=== PATIENT | male | born 2000 | race Caucasian/White ===

== ENCOUNTER 2024-04-28 14:04 | Observation (INO) | payer MEDICAID, SELFPAY ==
[2024-04-28] VITALS (8 sets, daily range): BP systolic 115–144; BP diastolic 58–105; PULSE 90–106; RESP 18–26; TEMP 36.1–37; O2SAT 93–100; BMI 24.3; BMI 19.9
[2024-04-28 14:43] LABS: Absolute Lymphocyte Count 1.59 X10^3/uL (0.83-4.51); Absolute Neutrophil Count 3.8 X10^3/uL (2.0-7.7); Basophil# 0.04 X10^3/uL; Basophil% 0.7 % (0-1); Eosinophil# 0.18 X10^3/uL; Eosinophils% 2.9 % (0-5); Hemoglobin 9.9 g/dL (13.0-16.5); Lymphocyte # 1.59 X10^3/ul (0.83-4.51); Lymphocyte % 25.9 % (19-41); Mean Corp Hgb Conc 29.1 g/dL (32-36); Mean Corpuscular Volume 68.7 fL (80-94); Mean Platelet Vol. 9.8 fl (6.2-12.0); Monocyte# 0.52 X10^3/uL; Monocyte% 8.5 % (0-10); NRBC Flagged by Analyzer 0 % (0-5); Neutrophil % 61.7 % (47-70); Platelet Count 492 K/mm3 (150-450); RBC Distribution Width CV 16.4 % (11.6-14.6); RBC Distribution Width SD 39.8 fl (35.1-43.9); Red Blood Count 4.95 M/mm3 (4.6-6.2); White Blood Count 6.2 K/mm3 (4.4-11.0)
[2024-04-28] MEDS: 0.9% Normal Saline (1000mL) 1,000 ML 999 ML IV ×3 (14:45→20:03)
--- NOTE | 2024-04-28 14:47 | EDS_ITS ---
HPI <BENJAMIN Loomis - Last Filed: 04/28/24 21:01> History of Present Illness Chief Complaint: Hyperglycemia Narrative Narrative: Patient presenting today with concerns for hyperglycemia. He reports a history of type 1 diabetes mellitus, he recently got back to the area yesterday from [place] after spending time living down there. He took a 36-hour bus ride to get back. He recently went into DKA at the end of March. He does not currently have a glucometer but has been giving himself Humalog daily. He reports that he has had 100 units of Humalog over the past 2 days. He reports that he feels thirsty and has been urinating frequently. He has had intermittent nausea but denies any vomiting. He reports that he has had chronic abdominal cramping intermittently, he is not currently having any abdominal pain. He also reports a history of a kidney transplant 10 years ago. When asked why he had a transplant he reports, I would prefer not to talk about it. [facility] <BENJAMIN Loomis - Last Filed: 04/28/24 21:01> [facility] Medical History Autism Type 1 diabetes mellitus Home Medications ?Medication ?Instructions ?Recorded ?Last Taken ?Type insulin glargine 100 unit/mL 25 unit subcut QPM DM 04/28/24 Unknown History subcutaneous solution (Lantus U-100 Insulin) insulin lispro 100 unit/mL 7 unit subcut ACHS dm 04/28/24 Unknown History subcutaneous pen (Humalog KwikPen (U-100) Insulin) lurasidone 40 mg tablet 40 mg PO DAILY dm 04/28/24 Unknown History mycophenolate sodium 360 mg 720 mg PO BID see order 04/28/24 Unknown History tablet,delayed release (Myfortic) tacrolimus 1 mg capsule, 2 mg PO Q12H sleep 04/28/24 Unknown History immediate-release trazodone 100 mg tablet 200 mg PO QHS sleep 04/28/24 Unknown History Allergy/AdvReac Type Severity Reaction Status Date / Time adhesive tape (tape) Allergy Rash Verified 04/28/24 14:06 ibuprofen Allergy PT UNABLE Verified 04/28/24 14:06 TO RESPOND-NEEDS F/U nitrofurantoin Allergy Rash Verified 04/28/24 14:06 Social History Smoking Status: Former smoker ROS <BENJAMIN Loomis - Last Filed: 04/28/24 21:01> ROS ED Constitutional Constitutional ED: Denies chills or fever(s) Cardiovascular Cardiovascular: Denies chest pain Respiratory/Chest Respiratory/Chest: Denies cough or dyspnea Gastrointestinal Gastrointestinal: Reports nausea; Denies abdominal pain or vomiting Genitourinary Genitourinary ED: Denies dysuria, hematuria or urinary urgency Musculoskeletal Musculoskeletal: Denies arthralgias or myalgias Integumentary Denies rash Neurologic Neurologic: Denies weakness EXAM <BENJAMIN Loomis - Last Filed: 04/28/24 21:01> Physical Exam Const Vital Signs: 04/28/24 14:04 04/28/24 14:07 04/28/24 17:10 Temperature 98.6 F 97.8 F Temperature Source Temporal Oral Pulse Rate 93 Respiratory Rate 18 Respiratory Effort Normal Respiratory Pattern Normal Blood Pressure 124/87 H 127/80 H Blood Pressure Mean 99 95 Pulse Ox 98 99 Oxygen Delivery Method Room Air Room Air 04/28/24 18:21 Temperature 97.1 F L Temperature Source Pulse Rate 106 H Respiratory Rate 26 H Respiratory Effort Respiratory Pattern Blood Pressure 144/95 H Blood Pressure Mean 111 Pulse Ox 100 Oxygen Delivery Method Positive well nourished, well developed and no apparent distress General Appearance ED: well developed HEENT Reports normocephalic, head/scalp atraumatic and dry mucous membranes Mouth ED: Yes dry mucous membranes Mouth: dry mucous membranes Eyes PERRL and EOMs intact bilaterally Neck full ROM and supple Chest Wall inspection of chest normal Resp normal respiratory effort and clear to auscultation bilaterally Cardio regular rate and regular rhythm GI soft to palpation, non-tender, non-distended and no masses Back/Spine normal ROM and normal to inspection Extremity normal to inspection and full ROM Neuro oriented x3, CN's II-XII intact bilaterally, moves all extremities, no focal motor deficits and no sensory deficits noted Sensorium / Orientation: awake and alert Psych mental status grossly normal and thought process normal Skin no rashes or lesions noted and no wounds <Dr. Ben Torres MD - Last Filed: 04/28/24 18:08> Physical Exam Const Vital Signs: 04/28/24 14:04 04/28/24 14:07 04/28/24 17:10 Temperature 98.6 F 97.8 F Temperature Source Temporal Oral Pulse Rate 93 Respiratory Rate 18 Respiratory Effort Normal Respiratory Pattern Normal Blood Pressure 124/87 H 127/80 H Blood Pressure Mean 99 95 Pulse Ox 98 99 Oxygen Delivery Method Room Air Room Air 04/28/24 18:21 Temperature 97.1 F L Temperature Source Pulse Rate 106 H Respiratory Rate 26 H Respiratory Effort Respiratory Pattern Blood Pressure 144/95 H Blood Pressure Mean 111 Pulse Ox 100 Oxygen Delivery Method MDM <BENJAMIN Loomis - Last Filed: 04/28/24 21:01> [facility] Narrative Medical decision making narrative: Patient presenting with concerns for hyperglycemia. Recent DKA at the end of March while in [place]. He does not have a glucometer to check his sugar but has been administering Humalog daily. He reports that he is out of his long-acting insulin and his insurance will no longer cover it. Clinically he does appear dry, he will be given IV fluids and labs will be obtained to rule out DKA. Patient is in DKA, he will be started on an insulin drip, he will be given additional IV fluids. I will speak with the hospitalist for admission. VBG pending. Initially patient was refusing treatment but did not want to leave A, he then was agreeable to receiving treatment was started on a insulin drip. Patient admitted to the hospital in stable condition. Lab Data Attestation: I reviewed the patient's lab results. Lab results narrative: H&H 9.9 and 34, platelet count 492, sodium 121, potassium 5.3, chloride 82, anion gap 27, BUN 35, creatinine 1.78, glucose 1020, moderate acetone level Labs: Laboratory Results - last 24 hr 04/28/24 04/28/24 14:25 18:25 WBC 6.2 RBC 4.95 Hgb 9.9 L Hct 34.0 L MCV 68.7 L MCH 20.0 L MCHC 29.1 L RDW Std Deviation 39.8 RDW Coeff of Aminah 16.4 H Plt Count 492 H MPV 9.8 Immature Gran % (Auto) 0.300 Neut % (Auto) 61.7 Lymph % (Auto) 25.9 [place] % (Auto) 8.5 Eos % (Auto) 2.9 Baso % (Auto) 0.7 Absolute Neuts (auto) 3.8 Absolute Lymphs (auto) 1.59 Nucleated RBC % 0 Sodium 121 L Potassium 5.3 H Chloride 82 L Carbon Dioxide 12.0 L Anion Gap 27 H BUN 35 H Creatinine 1.78 H Estim Creat Clear Calc 67.21 Est GFR (MDRD) Af Amer 62 Est GFR (MDRD) Non-Af 51 L BUN/Creatinine Ratio 19.7 Glucose 1020 H* Calcium 9.4 Acetone Level MODERATE H POC Glucose > 500 H* ABG Data ABG results: ABG 04/28/24 16:40 Specimen Type AURA Sample Site Not entered VBG pH 7.27 L VBG pO2 49 H VBG HCO3 8 L VBG Total CO2 9 L VBG O2 Sat (Calc) 80 H VBG Base Excess -19 L POC Mix VBG pCO2 Pt Tmp 18.1 L* O2 Delivery Device Not entered Crit Call To/Read Back Yes Blood Gas Notified Whom bb Blood Gas Notified Time 16:42:16 <Dr. Ben Torres MD - Last Filed: 04/28/24 18:08> [facility] Lab Data Labs: Laboratory Results - last 24 hr 04/28/24 04/28/24 14:25 18:25 WBC 6.2 RBC 4.95 Hgb 9.9 L Hct 34.0 L MCV 68.7 L MCH 20.0 L MCHC 29.1 L RDW Std Deviation 39.8 RDW Coeff of Aminah 16.4 H Plt Count 492 H MPV 9.8 Immature Gran % (Auto) 0.300 Neut % (Auto) 61.7 Lymph % (Auto) 25.9 [place] % (Auto) 8.5 Eos % (Auto) 2.9 Baso % (Auto) 0.7 Absolute Neuts (auto) 3.8 Absolute Lymphs (auto) 1.59 Nucleated RBC % 0 Sodium 121 L Potassium 5.3 H Chloride 82 L Carbon Dioxide 12.0 L Anion Gap 27 H BUN 35 H Creatinine 1.78 H Estim Creat Clear Calc 67.21 Est GFR (MDRD) Af Amer 62 Est GFR (MDRD) Non-Af 51 L BUN/Creatinine Ratio 19.7 Glucose 1020 H* Calcium 9.4 Acetone Level MODERATE H POC Glucose > 500 H* ABG Data ABG results: ABG 04/28/24 16:40 Specimen Type AURA Sample Site Not entered VBG pH 7.27 L VBG pO2 49 H VBG HCO3 8 L VBG Total CO2 9 L VBG O2 Sat (Calc) 80 H VBG Base Excess -19 L POC Mix VBG pCO2 Pt Tmp 18.1 L* O2 Delivery Device Not entered Crit Call To/Read Back Yes Blood Gas Notified Whom bb Blood Gas Notified Time 16:42:16 Management Discussion w/another healthcare provider: Hospitalist Treatment and Re-Evaluation Comments:: I have personally performed a face to face assessment of the patient and have reviewed the HARINI Note. I performed a substantive portion of the visit including all aspects of the following. My tong findings include: History is polydipsia and polyuria, feels like his blood sugar is high but does not have a glucometer. Nausea but no vomiting. Feeling a little short of breath. No chest pain. No fevers or chills or other illness. Exam is well-appearing in no distress. Texting with his friend. Abdomen soft nontender. No respiratory distress. Lungs clear. Medical Decison Making Labs consistent with severe hyperglycemia and DKA. Patient is refusing to get into a gown and refusing insulin drip. He is not refusing admission and wants to be admitted. He states there is a study that allows him to get out of DKA with subcutaneous insulin in the ICU and he wants to do that. Discussed with hospitalist. Other additions or changes: Patient is being very difficult with staff. He will not let them check his blood pressure, he threatened the hospitalist to gordon him and take his license. He states that there are psychiatric records from a hospital in [place] that he can obtain. He is not letting medical staff care for him in the appropriate manner per DKA policy of this hospital. He also states that he is complaining that the security operations engineer is not wearing a body cam, and that he is going to start recording people. He was alerted that there is a policy disallowing patient's recording healthcare providers at this hospital and that indeed he will not be allowed to do so. I advised him that he is not to be dictating the medical care; he was demanding that we give him food, however he is being admitted to the ICU for DKA with very high blood sugar. I do believe anu duong has the capacity to make these decisions, I advised him that he would do well to allow us to care for him in which case we would be happy to admit him or if he is going to be refusing all care and blood pressure, vital signs, other testing which is part of that, then he should be leaving AGAINST MEDICAL ADVICE although he is refusing to sign. Advised the patient that it is his choice. Discharge Plan Dx/Rx/DC Orders Clinical Impression: DKA (diabetic ketoacidosis) Disposition Disposition: Acute Care Hospital [facility] Discharge Date/Time: 04/28/24 19:42
--- NOTE | 2024-04-28 14:48 | ED.RN ---
pt refuses bp checksaying that cant use rt arm now because of iv pt up to br. animated behavior obs and some acting out on care and treatment. stated, im probably in dka pt refusing insulin gtt as discussed with BENJAMIN
[2024-04-28 15:40] LABS: Anion Gap 27 (5-15); BUN 35 mg/dL (7-18); BUN/Creat Ratio 19.7 RATIO (10-20); Calcium,Total 9.4 mg/dL (8.5-10.1); Chloride 82 mmol/L (98-107); Creatinine, Serum 1.78 mg/dL (0.70-1.30); EST Glomerular Filtration Rate 51 mL/min (>60); Est Glom Filt Rate - Afr Amer 62 mL/min (>60); Estimated Creatinine Clearance 67.21 ml/min; Glucose 1020 mg/dL (74-106); Potassium 5.3 mmol/L (3.5-5.1); Sodium Level 121 mmol/L (136-145)
--- NOTE | 2024-04-28 15:57 | ED.RN ---
Pt roro and belligerent to this RN, refuses to remove clothes and don hospital gown, refuses to allow this RN to obtain vitals signs, refuses to be put on case monitor.
--- NOTE | 2024-04-28 16:10 | ED.RN ---
This RN overheard pt rudely and adamantly refusing insulin gtt after being informed by ED MD he required admission to ICU. Pt states that's not the right treatment, I've been traumatized by and insulin drip before. Pt further tells ED MD subcutaneous insulin is the treatment for DKA, states that's what he's used before in [place].
--- NOTE | 2024-04-28 16:13 | ED.RN ---
pt not cooperating with staff. pt yelling loudly at someone on the phone, door closed and can still be heard at back nurses station. pt refusing to get off the phone to speak to this nurse. told this nurse you can wait till i'm off the phone. i'm not going to talk to you because i'm on the phone and you are rushing me, you can get out.
[2024-04-28 16:44] LABS: Blood Gas Specimen Type VEN; O2 Delivery Device Not entered; SITE Not entered; Time Given 16:42:16; VBG BASE EXCESS -19 mmol/L (-1.0-3.5); VBG Bicarbonate 8 mmol/L (22-26); VBG PO2 49 mmHg (25-40); VBG SO2 80 % (50-70); VBG TCO2 9 mmol/L (23-33); VBG pCO2 18.1 mmHg (41-51); VBG pH 7.27 (7.32-7.42)
--- NOTE | 2024-04-28 17:40 | ED.RN ---
per dr. pitts pt is threatening to gordon him and take his license.
--- NOTE | 2024-04-28 17:47 | PCM.HP.STD ---
HPI - General General Date of Admission: 04/28/24 Date of Service: 04/28/24 Chief Complaint: Diabetic ketoacidosis HPI Narrative CROW AVALOS, is a 24 M with past medical history of type 1 diabetes since the age of 12 years, reported high functioning autism, prior kidney transplant who presents presents with concerns regarding hyperglycemia, acidosis and features of diabetic ketoacidosis. The patient has been providing multiple and conflicting history as. Initially in the ED patient was not willing to accept therapy including IV insulin infusion as he says he has highs functioning autism and prior bad experience with insulin. He would not allow vitals to be checked as his asthma anxiety, as the blood pressure cuff gives him anxiety. He will agree with IV insulin infusion if he gets to eat when he is on the infusion. He has been verbally abusive to the doctor and the staff, repeating phrases like I will see you and close the hospital now, and verbally using expletives towards the staff. At this time he is more agreeable to get admitted and pursue therapy, he refused to go AMA but states will try to cooperate given his limitations with anxiety. COUNTS INCLUDE 234 BEDS AT THE [facility] Medical History Autism Type 1 diabetes mellitus Home Medications ?Medication ?Instructions ?Recorded ?Last Taken ?Type Unobtainable 04/28/24 Unknown History Allergy/AdvReac Type Severity Reaction Status Date / Time adhesive tape (tape) Allergy Rash Verified 04/28/24 14:06 ibuprofen Allergy PT UNABLE Verified 04/28/24 14:06 TO RESPOND-NEEDS F/U nitrofurantoin Allergy Rash Verified 04/28/24 14:06 Social History Smoking Status: Never smoker ROS Review of Systems ROS Unobtainable: other Details: Uncooperative Vital Signs Vital Signs Vital Signs: 04/28/24 14:04 04/28/24 14:07 04/28/24 17:10 Temperature 98.6 F 97.8 F Temperature Source Temporal Oral Pulse Rate 93 Respiratory Rate 18 Respiratory Effort Normal Respiratory Pattern Normal Blood Pressure 124/87 H 127/80 H Blood Pressure Mean 99 95 Pulse Ox 98 99 Oxygen Delivery Method Room Air Room Air Weight Weight: 170 lb Body Mass Index (BMI) 24.3 Physical Exam Const alert and oriented x3 Constitutional Narrative: Dry mucosa HEENT normocephalic Eyes PERRL Neck no lymphadenopathy Resp normal respiratory effort, no retractions and clear to auscultation bilaterally Cardio regular rhythm Neuro oriented x3 Sensorium / Orientation: awake and alert Results Medical Records Data Attestation: I reviewed the patient's medical records Lab / Micro Data Attestation: I reviewed the patient's lab results. 04/28/24 14:25 04/28/24 14:25 Labs: Laboratory Results - last 24 hr 04/28/24 14:25: WBC 6.2, RBC 4.95, Hgb 9.9 L, Hct 34.0 L, MCV 68.7 L, MCH 20.0 L, MCHC 29.1 L, RDW Std Deviation 39.8, RDW Coeff of Aminah 16.4 H, Plt Count 492 H, MPV 9.8, Immature Gran % (Auto) 0.300, Neut % (Auto) 61.7, Lymph % (Auto) 25.9, [place] % (Auto) 8.5, Eos % (Auto) 2.9, Baso % (Auto) 0.7, Absolute Neuts (auto) 3.8, Absolute Lymphs (auto) 1.59, Nucleated RBC % 0, Sodium 121 L, Potassium 5.3 H, Chloride 82 L, Carbon Dioxide 12.0 L, Anion Gap 27 H, BUN 35 H, Creatinine 1.78 H, Estim Creat Clear Calc 67.21, Est GFR (MDRD) Af Amer 62, Est GFR (MDRD) Non-Af 51 L, BUN/Creatinine Ratio 19.7, Glucose 1020 H*, Calcium 9.4, Acetone Level MODERATE H ABG Data ABG results: ABG 04/28/24 16:40 Specimen Type AURA Sample Site Not entered VBG pH 7.27 L VBG pO2 49 H VBG HCO3 8 L VBG Total CO2 9 L VBG O2 Sat (Calc) 80 H VBG Base Excess -19 L POC Mix VBG pCO2 Pt Tmp 18.1 L* O2 Delivery Device Not entered Crit Call To/Read Back Yes Blood Gas Notified Whom bb Blood Gas Notified Time 16:42:16 Attestation: I personally reviewed and interpreted this ABG as follows: Assessment & Plan Assessment/Plan (1) DKA (diabetic ketoacidosis): PLAN: Plan 24-year-old male with history of type 1 diabetes, reported prior kidney transplant presents to the ED with concerns regarding polyuria polydipsia, and has laboratory findings of diabetic ketoacidosis with a pH of 7.27. The patient is very uncooperative, states he has high functioning autism and severe anxiety disorder. He was initially refusing vital checkup in the ED and insulin infusion. #DKA: -Admit to the ICU -Start IV lispro insulin infusion per ICU protocol -0.9 normal saline at 15 mL/KG per hour initially l -Correctional insulin with D5 dextrose -Close monitoring of potassium, normokalemic at this time -N.p.o.. -IV or sublingual Zofran as tolerated by the patient Potassium chloride 20 to 30 mEq/L IV fluid to maintain potassium between 4-5 #Hyponatremia: Related to hyperglycemia, suspect pseudohyponatremia -Continue monitor sodium for now with fluid therapy #Severe behavioral issues, high functioning autism: -Difficult patient in regards to treat his underlying conditions -Will reach out to family as needed # Nicotine use disorder: Nicotine patch as needed #Alcohol use disorder: In abstinence at present #DVT prophylaxis: Low risk, suspect he will refuse heparin, SCD as tolerated Charges/Coding Visit Charges Inpatient E&M: 34180 Init Hosp L2
--- NOTE | 2024-04-28 17:53 | ED.RN ---
pt attempted to have vital signs taken d/t admission. pt 89/ and when went to recheck pt refusing. pt cussing at staff and stated, he will not have the bp retaken and if go icu as informed and that will be getting every 15 with strict monitoring pt stated, no i wont nohemy ill fucking rip that bp cuff rt off sing in to see and pt given ama form then d/t not letting staff or hospitalist do what needed to be done. security called as pt raising voice to when attempts to explain plan of care. pt stated, im not leaving ama and you cant refuse care! pt on phone then to call sister to come get me pt argues with every staff member that comes in room. viscose cellar charge hand aware. sister loyd called and aware and stated, do what you have to to keep him there. tell him i said and thats the rule!
--- NOTE | 2024-04-28 17:54 | ED.RN ---
Due to blood pressure being 89/14 on the monitor, I walked into room to request to put blood pressure cuff back on to get an updated pressure. Patient refused and said the cuff hasn't been on my arm and the cuff doesn't need to be on my arm to record a blood pressure. Patient then yells at myself and HOSPICE ADMITTING CLERK Miguel to shut the hell up. Miguel and myself then walk out of the room and go get application security specialist Nikita.
--- NOTE | 2024-04-28 17:57 | ED.RN ---
Addendum entered by Richa Lopes 04/28/24 18:13: Pt sister hung up before nurse of pt could answer phone and called back. this guidance secretary answered the phone, sister states I am Stanley Herbert's sister and POA, someone needs to do their job and not yell at my brother! He has PTSD and autism. I place sister on brief hold in which she hung up before the pt nurse could answer the phone call. Sister calls back immedietly, again this guidance secretary answers the phone and sister says I have called multiple times and no nurse has came to the phone regarding my brother! This guidance secretary stated that the pt nurse may be in another pt room, therefore she may take a few minutes to answer the phone. Pt sister again placed on hold. Original Note: Pt sister called ed, this guidance secretary answered the phone. She instantly started yelling about how her brother is in the er and being treated unfairly and wants to know why that is. I apologized and said I would try to get the nurse to the phone to further explain the situation.
--- NOTE | 2024-04-28 18:06 | ED.RN ---
dr aavlos in and sat with pt to let pt know that we are trying to help and that in order to do so we have to do the necessary nursing care. pt stated, well you can pull up my psych record that shows i have ptsd and autism and you people cannout be yelling at me! i already said i would do the drip, ask that one drCristopher when pt told that could not dictate what would and would not do yelled, and he doesnt even have a body cam (pointing to security incident response specialist) so i should gordon! dr. avalos left room. pt refusing gown at this time.
--- NOTE | 2024-04-28 18:08 | ED.RN ---
Walked into room with Bhakti Koehler, and security flex utility officer Niktia. Zakia asks patient are you willing to let us help you medically? Patient never answered question after being asked multiple times. He then states that [place] [employer] will be here in about 10 minutes or so to use their body cameras since I am not allowed to record. Patient states he has autism and requests 2 people to step out of the room. Myself and Nikita step out of the room.
--- NOTE | 2024-04-28 18:15 | ED.RN ---
sister loyd lane called who claims to be pts poa sister upset and asking why pt is being treated so bad when has autism and ptsd sister said that is calling zach digital producer because we should know about how to care for him. sister asked to come in and sit with him then so can see for herself that pt not being threatened and that is being belligerant on care. stated that will be here in 30 min.
--- NOTE | 2024-04-28 18:21 | ED.RN ---
pt currently agreeing to vitals and admission.
--- NOTE | 2024-04-28 18:21 | ED.RN ---
sister called back and stated i forgot i have this boot thing on and had foot surgery so cant come up. but restrain him and do everything you need to do charge accounts audit clerk and medic in and pt allowing vs at this time. pt still on phone with sister
--- NOTE | 2024-04-28 18:23 | ED.RN ---
pt agreeable to vitals at this time but demands they be removed.
--- NOTE | 2024-04-28 18:29 | ED.RN ---
I along with , security Marvin went into patient's room in the hopes of having the patient accept treatment or understand the risks of leaving the hospital AMA. the patient got upset and would not let the doctor talk or explain anything. Everyone left the room. Bhakti S, myself, Leny Newton, all entered the room to ask the patient if he would allow us to get vitals and place him on the monitor, patient explained he has autism and he would only like 2 people in the room. and Leny left the room, leaving myself and Bhakti in the room. Patient continued to not allow anyone to talk and continued to get more upset. Eula Murillo entered the room and Bhakti left the room. We allowed the patient to talk and explain why he was upset. patient then drank his kristy diamond, after vomited a large amount. patient accepted help from myself and Eula to change out emesis bag and get patient into a gown. patient explains he doesn't want stickers on his body. patient accepted the blood pressure cuff and pulse ox, glucose reading. patient became calmer and cooperative.
[2024-04-28] MEDS: Insulin Lispro 100 UNIT in 0.9% Normal Saline (100mL Bag) 99 ML 7.7 UNIT CONT INF (18:34)
[2024-04-28 18:44] LABS: Bedside Glucose > 500 mg/dL (74-106)
[2024-04-28] MEDS: Ondansetron ODT 4 MG Tablet PO (18:50)
[2024-04-28 20:15] LABS: Anion Gap 28 (5-15); BUN 33 mg/dL (7-18); Chloride 93 mmol/L (98-107); Creatinine, Serum 1.83 mg/dL (0.70-1.30); EST Glomerular Filtration Rate 49 mL/min (>60); Est Glom Filt Rate - Afr Amer 60 mL/min (>60); Estimated Creatinine Clearance 56.51 ml/min; Glucose 733 mg/dL (74-106); Potassium 4.5 mmol/L (3.5-5.1); Sodium Level 128 mmol/L (136-145)
[2024-04-29 08:36] LABS: Absolute Lymphocyte Count 3.01 X10^3/uL (0.83-4.51); Absolute Neutrophil Count 14.8 X10^3/uL (2.0-7.7); Basophil# 0.06 X10^3/uL; Basophil% 0.3 % (0-1); Hematocrit 32.4 % (40-54); Hemoglobin 9.3 g/dL (13.0-16.5); Lymphocyte # 3.01 X10^3/ul (0.83-4.51); Lymphocyte % 15.8 % (19-41); Mean Corp Hgb Conc 28.7 g/dL (32-36); Mean Corpuscular Hgb 19.8 pg (27.0-32.0); Mean Corpuscular Volume 69.1 fL (80-94); Monocyte# 1.08 X10^3/uL; Monocyte% 5.7 % (0-10); NRBC Flagged by Analyzer 0 % (0-5); Neutrophil # 14.81 X10^3/uL (2.7-7.7); Neutrophil % 77.6 % (47-70); Platelet Count 593 K/mm3 (150-450); RBC Distribution Width CV 16.5 % (11.6-14.6); Red Blood Count 4.69 M/mm3 (4.6-6.2); White Blood Count 19.1 K/mm3 (4.4-11.0)
[2024-04-29 08:51] LABS: International Normalized Ratio 1.3; Phosphorus 3.7 mg/dL (2.5-4.9); Prothrombin Time (Protime)PT. 15.7 SECONDS (11.7-14.9)
[2024-04-29 09:17] LABS: ALB/GLOB Ratio 1.2 RATIO (0.9-2.4); AST(SGOT) 12 U/L (15-37); Alanine Aminotransfer ALT/SGPT 21 U/L (16-61); Albumin, Serum 3.7 g/dL (3.2-5.0); Alkaline Phosphatase 100 U/L (45-117); Anion Gap 22 (5-15); BUN 22 mg/dL (7-18); BUN/Creat Ratio 12.9 RATIO (10-20); Bilirubin, Direct 0.09 mg/dL (0.00-0.30); Calcium,Total 8.6 mg/dL (8.5-10.1); Chloride 111 mmol/L (98-107); Creatinine, Serum 1.71 mg/dL (0.70-1.30); EST Glomerular Filtration Rate 53 mL/min (>60); Est Glom Filt Rate - Afr Amer 65 mL/min (>60); Estimated Creatinine Clearance 60.48 ml/min; Globulin 3.2 g/dL (2.2-4.2); Glucose 262 mg/dL (74-106); Magnesium 2.2 mg/dL (1.6-2.6); Potassium 4.5 mmol/L (3.5-5.1); Protein, Total 6.9 g/dL (6.4-8.2); Sodium Level 139 mmol/L (136-145); Thyroid Stim Hormone (TSH) 1.69 uIU/mL (0.358-3.74)
== END 2024-04-28 19:45 | disposition left against medical advice (07) | DRG 420 ==
LOC: ED 16:23 → ICU 08-13 09:32
PROVIDERS: Physician Assistant; Admitting Provider Internal Medicine; Emergency Provider Emergency Medicine; Visit Provider Internal Medicine
DX: E10.10 Type 1 diabetes mellitus with ketoacidosis without coma (principal); Z79.4 Long term (current) use of insulin; E87.1 Hypo-osmolality and hyponatremia; F41.9 Anxiety disorder, unspecified; Z94.0 Kidney transplant status; Z87.891 Personal history of nicotine dependence; F84.0 Autistic disorder; Z79.899 Other long term (current) drug therapy
CPT/HCPCS: 80048; 80053; 80076; 82009; 82803; 82962; 83735; 84100; 84443; 85025; 85610; 96361; 96365; 96366; 99221; 99284; J7030; A4216; G0378; J2405

== ENCOUNTER 2024-04-29 01:34 | Inpatient (IN) | payer MEDICAID, SELFPAY ==
[2024-04-29] VITALS (17 sets, daily range): BP systolic 90–139; BP diastolic 59–103; PULSE 81–125; RESP 16–30; TEMP -17.7–36.8; O2SAT 96–100; BMI 20.2
--- NOTE | 2024-04-29 01:35 | ED.RN ---
This RN and additional ED nurse in room with patient to triage after squad arrived in room with patient. Patient refusing to put a gown on and to let us get a complete set of vitals for triage. Informed patient of need for gown for proper assessment and treatment. Patient continued to refuse. EMS back in room with patient as patient was cooperative for them and they were able to assist patient into a gown. Pt allowed his RN to place blood pressure cuff on arm for BP. Pt stated he wasn't wear telemetry, this RN educated patient of importance of proper monitoring in his condition. Eventually allowed this RN to place telemetry leads. Patient then refused oral temp, education again provided and patient yelled at this RN stating 'then we're not doing it!.' This RN updated MD and gas charger.
--- NOTE | 2024-04-29 01:48 | EKG12_ITS ---
Test Reason : DKA Blood Pressure : / mmHG Vent. Rate : 113 BPM Atrial Rate : 113 BPM P-R Int : 150 ms QRS Dur : 080 ms QT Int : 340 ms P-R-T Axes : 058 051 062 degrees QTc Int : 466 ms Sinus tachycardia Otherwise normal ECG Confirmed by Nacho Larsen ([id number]), website/blog editor RAJNI VELEZ ([id number]) on 04/29/2024 11:31:36 AM Referred By: Confirmed By:Nacho Larsen
--- NOTE | 2024-04-29 01:48 | EDS_ITS ---
HPI History of Present Illness Chief Complaint: Hyperglycemia Detail of Chief Complaint: Hyperglycemia Informant: patient and EMS Narrative Narrative: Patient presents to the emergency department via EMS from home. Patient apparently left the hospital 2 hours ago AGAINST MEDICAL ADVICE and was admitted to the ICU for DKA. Patient tells me just moved up here from [place] 3 days ago. He tells me he has been compliant with his medications. Complains of vomiting. Patient denies fevers. He states he left AMA because of PTSD. Patient states that people were yelling at him. [facility] Medical History (Updated 04/29/24 @ 02:[address] Flako Perez DO) Autism Type 1 diabetes mellitus Home Medications ?Medication ?Instructions ?Recorded ?Last Taken ?Type insulin glargine 100 unit/mL 25 unit subcut QPM DM 04/28/24 Unknown History subcutaneous solution (Lantus U-100 Insulin) insulin lispro 100 unit/mL 7 unit subcut ACHS dm 04/28/24 Unknown History subcutaneous pen (Humalog KwikPen (U-100) Insulin) lurasidone 40 mg tablet 40 mg PO DAILY dm 04/28/24 Unknown History mycophenolate sodium 360 mg 720 mg PO BID see order 04/28/24 Unknown History tablet,delayed release (Myfortic) tacrolimus 1 mg capsule, 2 mg PO Q12H sleep 04/28/24 Unknown History immediate-release trazodone 100 mg tablet 200 mg PO QHS sleep 04/28/24 Unknown History Allergy/AdvReac Type Severity Reaction Status Date / Time adhesive tape (tape) Allergy Rash Verified 04/29/24 01:40 ibuprofen Allergy PT UNABLE Verified 04/29/24 01:40 TO RESPOND-NEEDS F/U nitrofurantoin Allergy Rash Verified 04/29/24 01:40 Social History Smoking Status: Current every day smoker tobacco type: cigarettes ROS ROS ED Review of Systems ROS Unobtainable: other Constitutional Constitutional ED: Reports lethargy; Denies chills, fever(s), sweats or weight loss Eyes Eyes: Denies blurry vision, change in vision or diplopia ENT ENT ED: Denies rhinorrhea or sore throat Cardiovascular Cardiovascular: Denies chest pain, orthopnea or racing heartbeat Respiratory/Chest Respiratory/Chest: Reports dyspnea; Denies cough, dyspnea on exertion, orthopnea or sputum Gastrointestinal Gastrointestinal: Reports nausea and vomiting; Denies abdominal pain or diarrhea Genitourinary Genitourinary ED: Denies dysuria, hematuria or urinary frequency Musculoskeletal Musculoskeletal: Denies arthralgias, back pain, myalgias or neck pain Integumentary Denies abscess, Abrasions or rash Neurologic Neurologic: Denies headache(s) or weakness Psychiatric Psychiatric: Denies anxiety, depression or suicidal thoughts Endocrine Endocrinology: Denies polydipsia, polyphagia or polyuria Hematologic/Lymphatic Hematologic/Lymphatic: Denies easy bleeding, easy bruising or lymphadenopathy Allergic/Immunologic Allergic/Immunologic ED: Denies mouth swelling, tongue swelling or urticaria EXAM Physical Exam Const Vital Signs: 04/29/24 01:35 Temperature 0 F L Temperature Source Oral Pulse Rate 123 H Respiratory Rate 28 H Blood Pressure 139/84 H Blood Pressure Mean 102 Pulse Ox 100 Oxygen Delivery Method Room Air Positive well nourished and well developed General Appearance ED: well developed and NAD HEENT Reports TM's clear and dry mucous membranes normocephalic and atraumatic; Negative for trauma or tenderness Tympanic Membrane ED: Yes TM's clear Mouth ED: Yes dry mucous membranes Mouth: dry mucous membranes Eyes PERRL and EOMs intact bilaterally General Eye ED: Negative for pale conjunctiva or scleral icterus Neck no lymphadenopathy, supple and no JVD General: Negative for tenderness Chest Wall inspection of chest normal and palpation of chest normal Chest: Negative for tenderness Resp No normal respiratory effort and clear to auscultation bilaterally Resp Narrative: Patient with tachypnea Effort and Inspection: Negative for respiratory distress or pain with movement Auscultation: Negative for rhonchi, wheezes or diminished lung sounds Cardio regular rhythm, S1 normal heart sound, S2 normal heart sound and no murmurs Rate: tachycardic Peripheral Pulses: pulses 2+ throughout GI normal to inspection, nondistended, normoactive bowel sounds, soft to palpation, non-tender, non-distended and no masses Back/Spine no CVA tenderness and no thoracic nor lumbar tenderness Extremity normal to inspection General Extremety ED: Negative for edema General Extremity: Negative for edema Neuro oriented x3, CN's II-XII intact bilaterally, no sensory deficits noted and gait normal Sensorium / Orientation: awake, alert, oriented to person, oriented to place and oriented to time Motor Exam: strength 5/5 throughout and strength abnormal Psych mental status grossly normal Skin no rashes or lesions noted and no wounds MDM MDM MDM Narrative Medical decision making narrative: Patient presents to the emergency department in A after signing out AGAINST MEDICAL ADVICE. He states that he has PTSD. Patient is quite challenging from standpoint of cooperation. He did allow us to attempt IV start. At times quite rude to staff. Nursing staff was able to place an IV in his right antecubital using ultrasound as he is a difficult IV stick. I ordered a liter normal saline fluid bolus as well as insulin drip. Will obtain labs. Patient with leukocytosis white count 20.7 and hemoglobin 9.8. Platelet count 701. Chemistries show sodium of 129 with potassium 6.3 and CO2 of 6.0. Glucose was 8 32. BUN 31 creatinine 2.0. Patient had large acetone serum. We will not treat the hyperkalemia as I feel this will correct with correction of his acidosis. He has a leukocytosis which I suspect is likely reactive as he has been retching and vomiting. Patient again agreed to be admitted and understands consequences of going without treatment including disability and . Patient does appear to have capacity. Lab Data Attestation: I reviewed the patient's lab results. Labs: Laboratory Results - last 24 hr 04/29/24 04/29/24 02:06 02:21 WBC 20.7 H RBC 5.02 Hgb 9.8 L Hct 36.2 L MCV 72.1 L MCH 19.5 L MCHC 27.1 L D RDW Std Deviation 41.7 RDW Coeff of Aminah 16.6 H Plt Count 701 H MPV 9.5 Immature Gran % (Auto) 0.600 Neut % (Auto) 79.5 H Lymph % (Auto) 11.7 L Jack % (Auto) 7.7 Eos % (Auto) 0.1 Baso % (Auto) 0.4 Absolute Neuts (auto) 16.4 H Absolute Lymphs (auto) 2.41 Nucleated RBC % 0 Sodium 129 L Potassium 6.3 H* Chloride 92 L Carbon Dioxide 6.0 L* Anion Gap 31 H BUN 31 H Creatinine 2.00 H Estim Creat Clear Calc 52.36 Est GFR (MDRD) Af Amer 54 L Est GFR (MDRD) Non-Af 45 L BUN/Creatinine Ratio 15.5 Glucose 832 H* Calcium 9.2 Acetone Level LARGE H POC Glucose > 500 H* EKG Initial EKG: Attestation: I personally reviewed and interpreted this EKG as follows: Comments: Sinus tachycardia with rate of 113 bpm Critical Care Time Critical care time (excluding procedures): 30-74 minutes, Including time spent:, Discussing w/Patient &/or Family/Welt Edge Rounder, Discussing w/Consultants, Arranging Admission or Transfer, Performing Direct Patient Care at Bedside and - (30 minutes) Discharge Plan Dx/Rx/DC Orders Clinical Impression: DKA (diabetic ketoacidosis), Hyperglycemia, Leukocytosis, Acute hyperkalemia Disposition Disposition: [facility] Capacity Capacity Assessment Tool Patient lacks Decision Making Capacity: unable to understand, reason and deliberate health related choices: No Risk to self and or others?: Yes Risk of leaving the patient care unit and or hospital?: Yes
--- NOTE | 2024-04-29 01:54 | ED.RN ---
This nurse to room to start IV. Pt states you will put it where the fuck I want you to or I will rip it out. Pt refusing to get into a gown or take oral temperature. Informed pt that in order to receive proper care, he needed to allow staff to perform assessment and obtain IV. Security to department, Dr. Perez to room. Dr. Perez able to calm pt and allow this nurse to start IV. After Dr. Perez leaves room, while drawing blood pt looks at nurse and asks did you fuck it up again, this nurse reported to pt IV was working properly. Pt remains rude to staff while doctor is out of room.
[2024-04-29] MEDS: 0.9% Normal Saline (1000mL) 1,000 ML 999 ML IV ×5 (02:09→11:46)
[2024-04-29] MEDS: Insulin Lispro 100 UNIT in 0.9% Normal Saline (100mL Bag) 99 ML 6.4 UNIT CONT INF (02:12)
[2024-04-29 02:16] LABS: Absolute Lymphocyte Count 2.41 X10^3/uL (0.83-4.51); Absolute Neutrophil Count 16.4 X10^3/uL (2.0-7.7); Basophil# 0.08 X10^3/uL; Basophil% 0.4 % (0-1); Eosinophil# 0.03 X10^3/uL; Eosinophils% 0.1 % (0-5); Hematocrit 36.2 % (40-54); Hemoglobin 9.8 g/dL (13.0-16.5); Lymphocyte # 2.41 X10^3/ul (0.83-4.51); Lymphocyte % 11.7 % (19-41); Mean Corp Hgb Conc 27.1 g/dL (32-36); Mean Corpuscular Hgb 19.5 pg (27.0-32.0); Mean Corpuscular Volume 72.1 fL (80-94); Mean Platelet Vol. 9.5 fl (6.2-12.0); Monocyte% 7.7 % (0-10); NRBC Flagged by Analyzer 0 % (0-5); Neutrophil # 16.43 X10^3/uL (2.7-7.7); Neutrophil % 79.5 % (47-70); POSITIVE DIFFERENTIAL YES; Platelet Count 701 K/mm3 (150-450); RBC Distribution Width CV 16.6 % (11.6-14.6); RBC Distribution Width SD 41.7 fl (35.1-43.9); Red Blood Count 5.02 M/mm3 (4.6-6.2); White Blood Count 20.7 K/mm3 (4.4-11.0)
[2024-04-29 02:18] LABS: Differential Indicated SCAN CRITERIA MET
[2024-04-29] MEDS: Ondansetron ODT 4 MG Tablet PO (02:25)
--- NOTE | 2024-04-29 02:31 | ED.RN ---
PT REFUSING BLOOD PRESSURE BEING ON AND DIRECTOR OF RESTAURANT.PT VERBALLY ABUSIVE TOWARD STAFF.
[2024-04-29 02:38] LABS: Anion Gap 31 (5-15); BUN 31 mg/dL (7-18); BUN/Creat Ratio 15.5 RATIO (10-20); Calcium,Total 9.2 mg/dL (8.5-10.1); Chloride 92 mmol/L (98-107); EST Glomerular Filtration Rate 45 mL/min (>60); Est Glom Filt Rate - Afr Amer 54 mL/min (>60); Estimated Creatinine Clearance 52.36 ml/min; Glucose 832 mg/dL (74-106); Potassium 6.3 mmol/L (3.5-5.1); Sodium Level 129 mmol/L (136-145)
[2024-04-29 02:39] LABS: Bedside Glucose > 500 mg/dL (74-106)
--- NOTE | 2024-04-29 02:43 | PCM.HP.STD ---
[facility] - General General Date of Admission: 04/29/24 Date of Service: 04/29/24 Chief Complaint: Left AMA with DKA - but then came back. HPI Narrative CROW HERBERT, is a 24 M who presents with a past medical history of tobacco abuse, history of EtOH abuse (claiming to be abstinent at present with EMERITA pending), DM-1; uncontrolled with hyperglycemia since age 12 with his last bout of DKA in March 2024, history of kidney transplant (2013); on mycophenolate and tacrolimus, PTSD: on Lurasidone and Trazodone and self reported history of high-functioning autism; with patient just having moved back here from [place] 2-3 days ago with his sister still living in this area and recent admission here earlier today for severe DKA with a pH of 7.27 and a blood glucose of 1,020 mg/dL with moderate ketones and anion gap of 27 complicated by a ALBA and extremely severe medical non-compliance with maliciously self destructive and repulsive personality who chose to leave AMA (likely so he could use drugs) has now returned to the hospital to be admitted. Mr. Herbert has been very rude to several staff members that have been professional and trying to help him in spite of him being consistently uncooperative and ungrateful for help. Nevertheless, EMS records state he was lying on the concrete outside of his apartment complaining of anxiety, headache and generalized weakness because his blood sugar was too high - but he then refused treatment from EMT with patient wanting nothing done and seeming very agitated. He does not use a glucometer - but he claims he has been giving himself Humalog insulin daily with persistent hyperglycemia, polyuria and polydipsia. He also admits to intermittent nausea and vomiting with bilious emesis. When he was asked during his ER evaluation on his previous admission here to expound upon why he has a kidney transplant he responded with, I prefer not to talk about it. There is no report of fever, diarrhea or constipation but he does admit to chills, lethargy and blurry vision with a severe tension-type headache. He also denies suicidal or homicidal ideation. In the ER on this occasion he was noted to have Leukocytosis of 20.7K with critical hyperglycemia of 832 mg/dL and an anion gap of 31 with large acetone consistent with persistent DKA complicated by Severe Hyperkalemia of 6.3 mmol/L present on admission and ALBA; evidenced by BUN of 31 mg/dL with a creatinine of 2 mg/dL compounded by severe medical noncompliance with uncontrolled PTSD; triggered by feeling pressured and he was then admitted to the ICU for ongoing care for a stay that is expected to extend beyond 2 midnights. [facility] Medical History Autism Type 1 diabetes mellitus Home Medications ?Medication ?Instructions ?Recorded ?Last Taken ?Type insulin glargine 100 unit/mL 25 unit subcut QPM DM 04/28/24 Unknown History subcutaneous solution (Lantus U-100 Insulin) insulin lispro 100 unit/mL 7 unit subcut ACHS dm 04/28/24 Unknown History subcutaneous pen (Humalog KwikPen (U-100) Insulin) lurasidone 40 mg tablet 40 mg PO DAILY dm 04/28/24 Unknown History mycophenolate sodium 360 mg 720 mg PO BID see order 04/28/24 Unknown History tablet,delayed release (Myfortic) tacrolimus 1 mg capsule, 2 mg PO Q12H sleep 04/28/24 Unknown History immediate-release trazodone 100 mg tablet 200 mg PO QHS sleep 04/28/24 Unknown History Allergy/AdvReac Type Severity Reaction Status Date / Time adhesive tape (tape) Allergy Rash Verified 04/29/24 01:40 ibuprofen Allergy PT UNABLE Verified 04/29/24 01:40 TO RESPOND-NEEDS F/U nitrofurantoin Allergy Rash Verified 04/29/24 01:40 Social History Smoking Status: Current every day smoker tobacco type: cigarettes ROS ROS Narrative Review of systems: General: Patient admits to lethargy but denies fever or chills. HENT: Patient admits to tension-type headache but he denies stuffy nose, denies sore throat EYES: Patient admits to blurriness of vision but denies discharge from eyes. Resp: Denies cough, denies shortness of breath Cardiac: Denies chest pain, heart racing or palpitations. GI: Patient admits to nausea with bilious emesis but denies abdominal pain or diarrhea. : Patient admits to excessive urination consistent with polyuria. Extremity: Denies swelling Musculoskeletal: Feels somewhat generally weak and unwell but denies arthralgias or myalgias. Neuro: Patient admits to tension type headache but he denies paresthesias or focal neurologic weakness. Heme: Denies any bleeding or bruising Skin: Denies rashes Psychiatric: Patient has been persistently uncooperative and unpleasant but he denies suicidal or homicidal ideation. Endocrine: Patient admits to polyuria and polydipsia but he denies polyphagia. The rest of the 14 point ROS was negative except for positives in HPI. Vital Signs Vital Signs Vital Signs: 04/29/24 01:35 Temperature 0 F L Temperature Source Oral Pulse Rate 123 H Respiratory Rate 28 H Blood Pressure 139/84 H Blood Pressure Mean 102 Pulse Ox 100 Oxygen Delivery Method Room Air Weight Weight: 140 lb 14.006 oz Body Mass Index (BMI) 20.2 Physical Exam Const alert, oriented x3, no apparent distress and average body habitus General Appearance: uncooperative HEENT normocephalic, head/scalp atraumatic and hearing grossly normal bilaterally HEENT Narrative: Mucous membranes dry. Eyes PERRL and EOMs intact bilaterally Neck no lymphadenopathy and supple Resp normal respiratory effort, no retractions, no use of accessory muscles and clear to auscultation bilaterally Resp Narrative: Tachypnea at ~28 breaths/min noted on admission. Cardio regular rate and regular rhythm Cardio Narrative: Patient noted to have sinus tachycardia at ~120 bpm. GI normal to inspection, nondistended, normoactive bowel sounds, soft to palpation and non-distended GI Narrative: Patient has mild generalized tenderness to palpation. Extremity normal to inspection, full ROM and no clubbing, cyanosis or edema Skin Skin Narrative: Patient has no evidence of jaundice or rash. Neuro oriented x3, CN's II-XII intact bilaterally, moves all extremities and no focal motor deficits Sensorium / Orientation: awake, alert, oriented to person, oriented to place and oriented to time Speech: speech normal Psych Psych Narrative: Patient is persistently uncooperative and irrational showing very poor medical decision making and even poorer insight into his complex and potentially fatal medical condition. Mood & Affect: depressed and anxious Results Medical Records Data Attestation: I reviewed the patient's medical records Lab / Micro Data Attestation: I reviewed the patient's lab results. 04/29/24 02:06 04/29/24 04:02 Labs: Laboratory Results - last 24 hr 04/29/24 02:06: WBC 20.7 H, RBC 5.02, Hgb 9.8 L, Hct 36.2 L, MCV 72.1 L, MCH 19.5 L, MCHC 27.1 L D, RDW Std Deviation 41.7, RDW Coeff of Aminah 16.6 H, Plt Count 701 H, MPV 9.5, Immature Gran % (Auto) 0.600, Neut % (Auto) 79.5 H, Lymph % (Auto) 11.7 L, [place] % (Auto) 7.7, Eos % (Auto) 0.1, Baso % (Auto) 0.4, Absolute Neuts (auto) 16.4 H, Absolute Lymphs (auto) 2.41, Nucleated RBC % 0, Sodium 129 L, Potassium 6.3 H*, Chloride 92 L, Carbon Dioxide 6.0 L*, Anion Gap 31 H, BUN 31 H, Creatinine 2.00 H, Estim Creat Clear Calc 52.36, Est GFR (MDRD) Af Amer 54 L, Est GFR (MDRD) Non-Af 45 L, BUN/Creatinine Ratio 15.5, Glucose 832 H*, Calcium 9.2, Acetone Level LARGE H 04/29/24 02:21: POC Glucose > 500 H* Assessment & Plan Assessment/Plan (1) DKA (diabetic ketoacidosis): QUALIFIERS: Diabetes mellitus complication detail: without coma Diabetes mellitus type: type 1 Qualified Code(s): E10.10 - Type 1 diabetes mellitus with ketoacidosis without coma (2) Acute hyperkalemia: (3) ALBA (acute kidney injury): (4) PTSD (post-traumatic stress disorder): (5) Autism: (6) Type 1 diabetes mellitus: QUALIFIERS: Diabetes mellitus complication status: without complication Qualified Code(s): E10.9 - Type 1 diabetes mellitus without complications PLAN: Plan 1. Severe persistent DKA with critical hyperglycemia of 832 mg/dL and an anion gap of 31 with large serum acetone and leukocytosis of 20.7 K present on admission - Admit to ICU for treatment under the DKA protocol. Keep n.p.o. and vigorously volume resuscitate. Check ABG if patient is not willing to cooperate to precisely assess severity and establish baseline. Leukocytosis likely due to acute stress response but will check UA and chest x-ray to be sure there is no underlying infection. PICC was also ordered with poor venous access and patient very sensitive to painful stimuli. Clinical dietitian will be consulted to help this patient to obtain a glucometer and to help educate him on the importance of compliance with his insulin and blood sugar checks. 2. Severe Hyperkalemia of 6.3 mmol/L present on admission due to #1 - Start IV insulin and recheck BMP's every 4 hours as per DKA protocol. 3. ALBA; evidenced by BUN of 31 mg/dL with a creatinine of 2 mg/dL complicating #1 & #2 - We we will give copious IV fluids and recheck BMP to ensure improvement. 4. Severe medical noncompliance with uncontrolled PTSD and self-reported high functioning autism compounding #1 - #3 - This individual has relatively poor insight into his complex and potentially fatal medical condition. UDS negative and EMERITA levels are pending at this time as patient was initially reluctant to give urine. Restart lurasidone and trazodone as previous plus give as needed IV Ativan for breakthrough symptoms. 5. History of tobacco abuse adding to the pathology of #1 - #4 - Tobacco cessation will be strongly encouraged with nicotine patch offered to control cravings. 6. History of kidney transplant (2013); on mycophenolate and tacrolimus - Continue mycophenolate and tacrolimus as previous to prevent rejection. This adds to the complexity of his case and may hamper recovery. 7. Recent admission here earlier today for severe DKA with a pH of 7.27 and a blood glucose of 1,020 mg/dL with moderate ketones and anion gap of 27 complicated by a ALBA and severe medical non-compliance with persistently uncooperative and irrational behavior who chose to leave AMA - Noted. 8. History of alcohol abuse - Patient claims to be abstinent at this time with EMERITA pending. He claims he has not used for ~60 days. 9. History of opiate abuse - Patient denies current use and he does not want to be treated with any opiates so he does not relapse. 10. DM-1; uncontrolled with hyperglycemia since age 12 with his last bout of DKA in March 2024 - Noted likely due to the devolving and unorthodox treatment regimen of not checking his blood glucose and taking Humalog randomly. 11. DVT/GI prophylaxis - Lovenox 30 mg subcu daily. Protonix 40 mg IV daily. Total time: Approximately 75 minutes. Charges/Coding Visit Charges Inpatient E&M: 35168 Init Hosp L3
[2024-04-29 02:51] LABS: Bacteria 0 SEEN /hpf (None Seen); Color, Urine Yellow (Yellow); Glucose, Dipstick 1000 mg/dl (Normal); Leukocyte Esterase-Dipstick Negative /ul (Negative); Mucous, Urine 0 SEEN /hpf (<or=2+); Nitrite-Dipstick Negative (Negative); Occult Blood-Urine Negative /ul (Negative); Protein-Dipstick 30 mg/dl (Negative); Red Blood Cells-Urine 0 SEEN /hpf (0-5); Specific Gravity, Urine 1.015 (1.002-1.030); Squamous Epithelial Cells - UA 0 SEEN /hpf (0-5); Urine Bilirubin Dipstick Negative (Negative); Urine Clarity Clear (Clear); Urine Urobilinogen Normal (Normal); White Blood Cells 0 SEEN /hpf (0-5)
[2024-04-29 02:54] LABS: Burr Cells 1+; Differential Comment SCANNED
[2024-04-29 03:00] LABS: Ketone-Dipstick 150 mg/dl (Negative)
[2024-04-29 03:19] LABS: Amphetamine Urine VISTA NEGATIVE (<1000 ng/mL); Barbiturate Urine VISTA NEGATIVE (< 200 ng/mL); Benzodiazepine Urine VISTA NEGATIVE (< 200 ng/mL); Cocaine Urine VISTA NEGATIVE (< 300 ng/mL); Ecstacy Urine VISTA NEGATIVE (< 500 ng/mL); Methadone Urine VISTA NEGATIVE (< 300 ng/mL); PCP Urine VISTA NEGATIVE (< 25 ng/mL); THC Urine VISTA NEGATIVE (< 50 ng/mL); Vista UDS pH Range 5
--- NOTE | 2024-04-29 03:23 | ED.RN ---
Pt being verbally abusive to staff. Yelling at nurses for wanting more water when pt was educated on ice chips being next to pt on bedside stool and needing to limit po fluids at this time. Pt yelled how the fuck am I supposed to reach it. RN handed pt ice chips and reminded to treat staff with respect.
[2024-04-29] MEDS: 0.9% Normal Saline (1000mL) 1,000 ML 250 ML IV (03:31)
[2024-04-29 03:37] LABS: Bedside Glucose > 500 mg/dL (74-106)
--- NOTE | 2024-04-29 03:44 | ED.RN ---
Due to patient manipulative behavior of accusations and poor treatment of staff, ER nurses caring for patient in pairs. Two staff members in room with patient when care is provided.
--- NOTE | 2024-04-29 03:54 | ED.RN ---
REPORT CALLED JOHN HUGGINS
[2024-04-29 04:36] LABS: Anion Gap 26 (5-15); BUN 28 mg/dL (7-18); BUN/Creat Ratio 16.1 RATIO (10-20); Chloride 109 mmol/L (98-107); Creatinine, Serum 1.74 mg/dL (0.70-1.30); EST Glomerular Filtration Rate 52 mL/min (>60); Est Glom Filt Rate - Afr Amer 63 mL/min (>60); Estimated Creatinine Clearance 59.47 ml/min; Glucose 430 mg/dL (74-106); Magnesium 2.2 mg/dL (1.6-2.6); Phosphorus 3.6 mg/dL (2.5-4.9); Sodium Level 139 mmol/L (136-145); Thyroid Stim Hormone (TSH) 1.75 uIU/mL (0.358-3.74); Troponin-I HS 4 pg/mL (3.0-78.0)
[2024-04-29] MEDS: 0.9% Normal Saline (1000mL) 1,000 ML 500 ML IV (05:02)
[2024-04-29] MEDS: Dext 5%-0.45% NS 1,000 ML 150 ML IV (05:30)
--- NOTE | 2024-04-29 05:53 | NURSING ---
Blood check due at 0512. Pt refusing to allow this RN to check Blood sugar. Pt educated that he is currently on an insulin gtt and that requires BS Q1h. I don't care. You are not checking it. health and fitness instructor notified of pt refusing care at this time. Security and clinic charge nurse spoke with pt. Pt states I will not have my blood sugar checked until I can have some ice for my dry mouth. Pt informed he was ordered NPO. health and fitness instructor deals with pt. Blood sugar taken. 1/2 cup ice chips given.
[2024-04-29 06:07] LABS: Bedside Glucose 366 mg/dL (74-106)
[2024-04-29 06:07] LABS: Bedside Glucose 241 mg/dL (74-106)
--- NOTE | 2024-04-29 06:20 | NURSING ---
Pt is again refusing to have blood drawn and BS checked. Charge and manager apple are talking with pt at this time.
[2024-04-29] MEDS: LORazepam 2 MG/ML Syringe 1 MG IV (07:56)
[2024-04-29] MEDS: 0.9% Saline Lock 10 ML Syringe IV (08:14)
[2024-04-29 08:49] LABS: Anion Gap 23 (5-15); BUN 22 mg/dL (7-18); Calcium,Total 8.9 mg/dL (8.5-10.1); Chloride 112 mmol/L (98-107); Creatinine, Serum 1.69 mg/dL (0.70-1.30); EST Glomerular Filtration Rate 54 mL/min (>60); Est Glom Filt Rate - Afr Amer 65 mL/min (>60); Estimated Creatinine Clearance 61.23 ml/min; Glucose 271 mg/dL (74-106); Potassium 4.5 mmol/L (3.5-5.1); Sodium Level 141 mmol/L (136-145)
[2024-04-29 09:04] LABS: Bedside Glucose 259 mg/dL (74-106)
[2024-04-29 09:45] LABS: Hemoglobin A1c 11.1 % (3.8-5.6)
[2024-04-29 11:17] LABS: Bedside Glucose 157 mg/dL (74-106)
[2024-04-29 11:37] LABS: Amphetamine Urine VISTA NEGATIVE (<1000 ng/mL); Barbiturate Urine VISTA NEGATIVE (< 200 ng/mL); Benzodiazepine Urine VISTA NEGATIVE (< 200 ng/mL); Cocaine Urine VISTA NEGATIVE (< 300 ng/mL); Ecstacy Urine VISTA NEGATIVE (< 500 ng/mL); Methadone Urine VISTA NEGATIVE (< 300 ng/mL); PCP Urine VISTA NEGATIVE (< 25 ng/mL); THC Urine VISTA NEGATIVE (< 50 ng/mL); Vista UDS pH Range 5
--- NOTE | 2024-04-29 12:19 | CASEMGMT ---
JOSELUIS FORREST Assessment and readmission note Index: 04/28/24-04/28/24. Dx: DKA. Pt left AMA Readmission: 04/29/24. Dx: DKA, ALBA, Tobacco Abuse, and severe medical noncompliance. There was no assessment completed from the index admission. This RN CM opted to complete a full assessment. RN CM to pt room at this time. Pt appears agitated and refuses to answer this RN CM questions for assessment. TC to pt NOK on file (Sister - Renetta). Renetta states that she is willing to answer this RN LON questions for assessment. Care providers, pharmacy, and demographics verified. LACE Strata: 1 PCP: No current PCP. Pt recently moved back from [place]. Pt sister states that she plans to set up a PCP for the pt Specialists: Denies current Preferred Pharmacy: [facility] During this stay Insurance: Medicaid ([place]). Pt will need to reapply for [facility]. SW notified. Prescription Benefit: Yes LNOK: Renetta Pascal (Sister) Living Arrangements: Pt lives with his sister, EUSEBIO, Mother, and Father in a ground level apartment with a flat entrance ADLs/IADLs: Ind Transportation: Sister DME: Denies all DME. Pt sister states that the pt does not have a BGM at home. Will not be able to provide Rx for this until the pt acquires insurance. Pt sister educated about BGM (and supplies) options at [facility] for around 20$. HHC/SNF: Denies Plan: TBD. Anticipate eventual DC home once the pt is medically ready. CM/ SW to follow pt progression in the hospital to configure a safe DC plan moving forward. Sangeetha Murillo RN, CM
[2024-04-29 13:10] LABS: Anion Gap 13 (5-15); BUN 17 mg/dL (7-18); BUN/Creat Ratio 11.4 RATIO (10-20); Calcium,Total 7.7 mg/dL (8.5-10.1); Chloride 118 mmol/L (98-107); Creatinine, Serum 1.49 mg/dL (0.70-1.30); EST Glomerular Filtration Rate 63 mL/min (>60); Est Glom Filt Rate - Afr Amer 76 mL/min (>60); Estimated Creatinine Clearance 69.45 ml/min; Glucose 183 mg/dL (74-106); Potassium 3.8 mmol/L (3.5-5.1); Sodium Level 142 mmol/L (136-145)
--- NOTE | 2024-04-29 13:38 | CASEMGMT ---
Social Work SW reached out to Veronica w/[employer]. She did try to see pt already, but pt is not alert and oriented. She plans to try again when pt is more appropriate. As per Veronica's email, if pt still qualifies for [place] Medicaid then he will not be able to qualify for [place] Medicaid until the start of the month. MANUELA Pierce
[2024-04-29 14:01] LABS: Pathologist Review Reviewed
[2024-04-29] MEDS: 0.9% Normal Saline (1000mL) 1,000 ML 150 ML IV ×2 (16:36→22:52)
--- NOTE | 2024-04-29 16:36 | PCM.HOSP.N ---
Hospitalist Note Patient was seen and examined today, he has been resting quietly most of the day, he requested food this afternoon, his anion gap has been closed x 1 so far, I think it is appropriate at this time to go ahead and feed the patient and put him on some basal insulin. I have elected to continue his IV fluids, repeat BMP will be performed tomorrow morning.
[2024-04-29 16:47] LABS: Bedside Glucose 40 mg/dL (74-106)
[2024-04-29 17:31] LABS: Anion Gap 8 (5-15); BUN 13 mg/dL (7-18); BUN/Creat Ratio 9.6 RATIO (10-20); Calcium,Total 8.3 mg/dL (8.5-10.1); Chloride 119 mmol/L (98-107); Creatinine, Serum 1.35 mg/dL (0.70-1.30); EST Glomerular Filtration Rate 70 mL/min (>60); Est Glom Filt Rate - Afr Amer 85 mL/min (>60); Estimated Creatinine Clearance 76.65 ml/min; Glucose 42 mg/dL (74-106); Potassium 3.2 mmol/L (3.5-5.1); Sodium Level 143 mmol/L (136-145)
--- NOTE | 2024-04-29 18:59 | NURSING ---
Attempted to recheck blood sugar. Pt refusing nurse to recheck. Education provided. Will attempt to check blood sugar at a later time.
--- NOTE | 2024-04-29 20:24 | NURSING ---
pt refusing hourly vitals, refusing to keep blood pressure cuff and continuous SpO2 monitor on. Pt reminded that he is in the ICU requiring frequent monitoring. Pt becoming more agitated continuing to refuse nursing care.
[2024-04-29 20:36] LABS: Bedside Glucose 448 mg/dL (74-106)
[2024-04-29] MEDS: Insulin Glargine-YFGN 100 UNIT/ML Pen 20 UNIT SC (21:12)
[2024-04-29] MEDS: Insulin Lispro 100 UNIT/ML INSULN.PEN 16 UNIT SC (21:13)
[2024-04-29] MEDS: traZODone 100 MG Tablet 200 MG PO (21:19)
[2024-04-30 03:00] VITALS: BP 108/76; PULSE 85; RESP 18; TEMP 36.6; O2SAT 98
[2024-04-30] MEDS: 0.9% Normal Saline (1000mL) 1,000 ML 150 ML IV (04:55)
--- NOTE | 2024-04-30 05:29 | NURSING ---
Pt refusing maintenance fluids. Normal saline at 150 mL/hr paused at 0500.
[2024-04-30 05:35] LABS: Anion Gap 5 (5-15); BUN 9 mg/dL (7-18); BUN/Creat Ratio 7.6 RATIO (10-20); Calcium,Total 8.2 mg/dL (8.5-10.1); Chloride 115 mmol/L (98-107); Creatinine, Serum 1.18 mg/dL (0.70-1.30); EST Glomerular Filtration Rate 82 mL/min (>60); Est Glom Filt Rate - Afr Amer 99 mL/min (>60); Estimated Creatinine Clearance 87.69 ml/min; Glucose 80 mg/dL (74-106); Potassium 3.5 mmol/L (3.5-5.1); Sodium Level 139 mmol/L (136-145)
--- NOTE | 2024-04-30 07:54 | NURSING ---
Attempted to take pt's blood sugar. Pt resting with eyes closed and yelled NO I'M NOT AWAKE asked if he wanted any breakfast NOT RIGHT NOW. Told pt to call us when he is ready to have BGT taken and receive care.
--- NOTE | 2024-04-30 08:44 | DCINST_ITS ---
Discharge Instructions Diet Discharge Diet: 2200 Calorie Control Diet Activity Discharge Activity: Return to Normal Activity Weight Bearing Status: Full weight bearing Follow Up Care Test Results: Test results from this visit will be discussed in further detail at your follow- up appointment, if applicable. Discharge Plan Admission Admit Date/Time: 04/29/24 03:40 Primary Reason for Your Visit: DKA Attending Provider: Remington Lucas Primary Care Provider: Care Physician,No Primary Consulting Providers: Darell Thorpe Discharge Orders/Prescriptions Prescriptions: New mycophenolate mofetil 250 mg Capsule 1,000 mg PO BID Qty: 240 0RF tacrolimus 1 mg Capsule 2 mg PO BID Qty: 120 0RF lurasidone [Latuda] 40 mg Tablet 40 mg PO QHS Qty: 30 0RF insulin glargine-yfgn 100 unit/mL (3 mL) Insulin Pen 25 unit subcut BREAKFAST Qty: 15 0RF trazodone 100 mg Tablet 200 mg PO QHS Qty: 60 0RF insulin lispro [Humalog KwikPen Insulin] 100 unit/mL insulin pen 10 unit subcut TID Qty: 15 0RF (DME) pen needle, diabetic [Pen Needle] 31 gauge x 1/4 needle See Rx Instructions .Route Qty: 100 0RF Rx Instructions: As directed Discontinued insulin glargine [Lantus U-100 Insulin] 100 unit/mL solution 25 unit subcut QPM insulin lispro [Humalog KwikPen Insulin] 100 unit/mL insulin pen 7 unit subcut ACHS lurasidone 40 mg tablet 40 mg PO DAILY Rx Instructions: must administer with food (at least 350 calories) mycophenolate sodium [Myfortic] 360 mg tablet,delayed release (DR/EC) 720 mg PO BID tacrolimus 1 mg capsule 2 mg PO Q12H trazodone 100 mg tablet 200 mg PO QHS Referrals / Follow Up: Anamika Mata [Non-Staff] - Within 1 Month Care Physician,No Primary [Primary Care Provider] - Disposition Disposition (needs filled in before D/C Order can be placed): Home, Self Care
--- NOTE | 2024-04-30 08:58 | NURSING ---
Pt is awake, using cell phone. Will attempt care when cooperative.
--- NOTE | 2024-04-30 09:16 | DS.PCM_ITS ---
Providers Date of Admission: 04/29/24 Date of Discharge: 04/30/24 Primary Care Physician: No Primary Care Phys Reason For Visit: DKA,ALBA,TOBACCO ABUSE & SEVERE MEDICAL NONCOMPLIAN Diagnosis Discharge Diagnosis (1) DKA (diabetic ketoacidosis): Status: Acute Code(s): E11.10 - Type 2 diabetes mellitus with ketoacidosis without coma Qualifiers: Diabetes mellitus complication detail: without coma Diabetes mellitus type: type 1 Qualified Code(s): E10.10 - Type 1 diabetes mellitus with ketoacidosis without coma (2) Acute hyperkalemia: Status: Acute Code(s): E87.5 - Hyperkalemia (3) ALBA (acute kidney injury): Status: Acute Code(s): N17.9 - Acute kidney failure, unspecified (4) PTSD (post-traumatic stress disorder): Status: Acute Code(s): F43.10 - Post-traumatic stress disorder, unspecified (5) Autism: Status: Acute Code(s): F84.0 - Autistic disorder (6) Type 1 diabetes mellitus: Status: Acute Code(s): E10.9 - Type 1 diabetes mellitus without complications Qualifiers: Diabetes mellitus complication status: without complication Qualified Code(s): E10.9 - Type 1 diabetes mellitus without complications Plan: Final diagnosis: #1 DKA #2 type 1 diabetes-uncontrolled #3 medical noncompliance #4 autism #5 PTSD #6 acute kidney injury secondary to #1 #7 hyperkalemia Medications at Discharge Home Medications insulin glargine-yfgn 100 unit/mL (3 mL) subcutaneous pen 25 unit (0.25 mL) subcut BREAKFAST #15 mL 04/30/24 insulin lispro 100 unit/mL subcutaneous pen (Humalog KwikPen (U-100) Insulin) 10 unit (0.1 mL) subcut TID #15 mL 04/30/24 lurasidone 40 mg tablet (Latuda) 40 mg PO QHS #30 tabs 04/30/24 mycophenolate mofetil 250 mg capsule 1,000 mg (4 x 250 mg) PO BID #240 caps 04/30/24 pen needle, diabetic 31 gauge x 1/4 (Pen Needle) #100 ea 04/30/24 tacrolimus 1 mg capsule, immediate-release 2 mg (2 x 1 mg) PO BID #120 caps 04/30/24 trazodone 100 mg tablet 200 mg (2 x 100 mg) PO QHS #60 tabs 04/30/24 Hospital Course Operations None Procedures None Summary of Care Provided Minutes Spent on Discharge: 31 Hospital Course: This 24-year-old white male presented to the emergency room at [facility] after leaving AMA from the emergency room the day before when he was diagnosed with DKA. Patient has autism and PTSD which complicates his medical care, he recently moved back to the [facility] from [place] and he had been in town approximately 5 to 7 days. Patient also had a past history of a kidney transplant, he had not been taking his antirejection drugs. Patient returned to the emergency room after laying down on the ground in front of his apartment complex and was brought back to the ER for further evaluation. Patient's white blood cell count was elevated at 20.7, hemoglobin was 9.8, chemistry profile was abnormal for a sodium of 129, potassium of 6.3, bicarb of 6, anion gap of 31, creatinine of 2, and a blood sugar of 832. Patient was admitted to the ICU on an insulin drip, IV fluids were administered, patient was difficult to care for due to the fact he refused blood draws at times and acted aggressive toward staff. I talked with the patient's sister and confirmed that the patient was not taking his antirejection medications for his kidney transplant. On 04/30/2024, patient was seen and examined: On examination he appeared sleepy and would not carry on a conversation. Vital signs as documented. Skin warm and dry and without overt rashes. Neck without JVD, neck was supple, trachea midline, thyroid was normal. Lungs clear bilaterally, normal air movement was noted. Heart exam notable for regular rhythm, normal sounds and absence of murmurs, rubs or gallops. Abdomen unremarkable and without evidence of organomegaly, masses, or abdominal aortic enlargement. Bowel sounds are present, abdomen is not distended. Extremities nonedematous, no cyanosis was noted, no clubbing was noted. Neuro: Cranial nerves II through XII are grossly intact, no focal motor deficits were noted, sensation to light touch and pinprick intact, motor exam 5/5 throughout. Psych: Patient is sleepy and would not carry on a conversation and withdrew to tactile stimuli. It was felt that the patient was stable for discharge on 04/30/2024, he was discharged home in stable condition, prognosis is guarded due to the patient's noncompliance and psychiatric issues. Weight / BMI Weight Weight: 63.14 kg Body Mass Index (BMI) 20.0 ABG / Lab / Microbiology Data 04/29/24 02:06 04/30/24 05:00 Laboratory: Laboratory Results - last 24 hr 04/29/24 02:06: Diff Path Review Reviewed 04/29/24 08:10: Hemoglobin A1c 11.1 H 04/29/24 10:58: POC Glucose 157 H 04/29/24 11:05: Urine Opiates Screen NEGATIVE, Urine Methadone Screen NEGATIVE, Ur Barbiturates Screen NEGATIVE, Ur Phencyclidine Scrn NEGATIVE, Ur Amphetamines Screen NEGATIVE, MDMA (Ecstasy) Screen NEGATIVE, U Benzodiazepines Scrn NEGATIVE, Urine Cocaine Screen NEGATIVE, U Cannabinoids Screen NEGATIVE, Ur Drug Screen Comment 04/29/24 12:40: Sodium 142, Potassium 3.8, Chloride 118 H, Carbon Dioxide 11.0 L , Anion Gap 13, BUN 17, Creatinine 1.49 H, Estim Creat Clear Calc 69.45, Est GFR (MDRD) Af Amer 76, Est GFR (MDRD) Non-Af 63, BUN/Creatinine Ratio 11.4, Glucose 183 H, Calcium 7.7 L 04/29/24 16:25: Sodium 143, Potassium 3.2 L, Chloride 119 H, Carbon Dioxide 16.0 L, Anion Gap 8, BUN 13, Creatinine 1.35 H, Estim Creat Clear Calc 76.65, Est GFR (MDRD) Af Amer 85, Est GFR (MDRD) Non-Af 70, BUN/Creatinine Ratio 9.6 L, Glucose 42 L*, Calcium 8.3 L 04/29/24 16:29: POC Glucose 40 L* 04/29/24 20:19: POC Glucose 448 H 04/30/24 05:00: Sodium 139, Potassium 3.5, Chloride 115 H, Carbon Dioxide 19.0 L , Anion Gap 5, BUN 9, Creatinine 1.18, Estim Creat Clear Calc 87.69, Est GFR (MDRD) Af Amer 99, Est GFR (MDRD) Non-Af 82, BUN/Creatinine Ratio 7.6 L, Glucose 80, Calcium 8.2 L D/C Instructions Discharge Diet: 2200 Calorie Control Diet Weight Bearing Status: Full weight bearing Meaningful Use Info Meaningful Use Meaningful Use Diagnoses (Choose all that apply): None applicable Ischemic Stroke Statin Dosing Therapy Reference: STATIN DOSE THERAPY REFERENCE: * Patients > 75 years receive moderate or high dose statin therapy. * Patients 75 years or YOUNGER should receive HIGH intensity statin dose unless contraindicated. You will be required to document reason for non-treatment if statin daily dose does not meet guidelines. HIGH DOSE STATIN THERAPY DAILY Atorvastatin > than or = to 40 mg Rosuvastatin > than or = to 20 mg Amlodipine + Atorvastatin > than or = to 2.5/40 mg Ezetimibe + Simvastatin 10/80 mg Simvastatin 80mg Discharge Plan Admission Admit Date/Time: 04/29/24 03:40 Primary Reason for Your Visit: DKA Attending Provider: Remington Lucas Primary Care Provider: Care Physician,No Primary Consulting Providers: Darell Thorpe Discharge Orders/Prescriptions Prescriptions: New mycophenolate mofetil 250 mg Capsule 1,000 mg PO BID Qty: 240 0RF tacrolimus 1 mg Capsule 2 mg PO BID Qty: 120 0RF lurasidone [Latuda] 40 mg Tablet 40 mg PO QHS Qty: 30 0RF insulin glargine-yfgn 100 unit/mL (3 mL) Insulin Pen 25 unit subcut BREAKFAST Qty: 15 0RF trazodone 100 mg Tablet 200 mg PO QHS Qty: 60 0RF insulin lispro [Humalog KwikPen Insulin] 100 unit/mL insulin pen 10 unit subcut TID Qty: 15 0RF (DME) pen needle, diabetic [Pen Needle] 31 gauge x 1/4 needle See Rx Instructions .Route Qty: 100 0RF Rx Instructions: As directed Discontinued insulin glargine [Lantus U-100 Insulin] 100 unit/mL solution 25 unit subcut QPM insulin lispro [Humalog KwikPen Insulin] 100 unit/mL insulin pen 7 unit subcut ACHS lurasidone 40 mg tablet 40 mg PO DAILY Rx Instructions: must administer with food (at least 350 calories) mycophenolate sodium [Myfortic] 360 mg tablet,delayed release (DR/EC) 720 mg PO BID tacrolimus 1 mg capsule 2 mg PO Q12H trazodone 100 mg tablet 200 mg PO QHS Referrals / Follow Up: Anamika Mata [Non-Staff] - Within 1 Month Care Physician,No Primary [Primary Care Provider] - Disposition Disposition (needs filled in before D/C Order can be placed): Home, Self Care Charges/Coding Visit Charges Inpatient E&M: 06898 Disch Hosp >30min
[2024-04-30] MEDS: Insulin Glargine-YFGN 100 UNIT/ML Pen 20 UNIT SC (09:23)
--- NOTE | 2024-04-30 09:39 | CASEMGMT ---
Addendum entered by Carlos Murillo 04/30/24 11:40: This RN CM was able to get in contact with the pt sister at this time. This RN CM educated the sister about [facility] and provided the contact number for this. Pt sister states understanding and denies further questions or concerns. Addendum entered by Carlos Murillo 04/30/24 10:32: Veronica, pt financial services manager, states that the pt declined her screening in regard to applying for [facility]. It appears that the pt may not quite understand or comprehend the meaning behind this. TC to the pt sister to provide education and phone # to apply for [employer], no answer. VM box not set up. Will try again at a later time. Original Note: Pt has an order for DC. Pt currently has no Rx coverage and states that he will not be able to get his medications. Pt qualifies for the Rx assistance program here. Pt educated about this and that he will only be able to utilize this once per year. Pt states understanding. Rx Assistance program flowsheet filled out, printed, and tubed to the retail pharmacy. TC to [facility] and Rodrigo states that they will deliver the medications to the bedside once they are ready. Pt also states that he has no ride home. TC to pt sister and the pt sister states that they currently have no vehicle. Pt RN updated. Pt RN states that she will set up transport for the pt through the hospital van after the pt eats and receives his medications. Pt and pt sister have been educated about a BGM and supplies through [employer] for 20$, since the pt currently has no insurance. Pt and pt sister state understanding. Pt denies further questions or concerns at this time.
[2024-04-30 09:45] LABS: Bedside Glucose 135 mg/dL (74-106)
--- NOTE | 2024-04-30 10:24 | NURSING ---
Returned to room to assess whether rx had been delivered and dc pt when he states, I REALLY DON'T WANT TO WAIT ANYMORE I HAVE INSULIN AND TACROLIMUS AT HOME. Called hospital van for ride as they have availability at 1:30, reserved ride home. Pt fully clothed walking around room agreeable to stay LONG I CAN GET LUNCH.
[2024-04-30] MEDS: Insulin Lispro 100 UNIT/ML INSULN.PEN SC (11:36)
[2024-04-30 11:54] LABS: Bedside Glucose 248 mg/dL (74-106)
--- NOTE | 2024-04-30 13:18 | NURSING ---
Pt refuses DC VS. DC w/ medications. Going home via hospital van at 1330.
== END 2024-04-30 13:21 | disposition home or self-care (01) | DRG 420 ==
LOC: ED 02:48 → ICU 03:52
PROVIDERS: Admitting Provider Internal Medicine; Emergency Provider Emergency Medicine; Visit Provider Internal Medicine
DX: E10.10 Type 1 diabetes mellitus with ketoacidosis without coma (principal); N17.9 Acute kidney failure, unspecified; Z79.4 Long term (current) use of insulin; E87.5 Hyperkalemia; R11.2 Nausea with vomiting, unspecified; F17.210 Nicotine dependence, cigarettes, uncomplicated; Z94.0 Kidney transplant status; F84.0 Autistic disorder; F43.10 Post-traumatic stress disorder, unspecified; Z91.199 Patient's noncompliance with other medical treatment and regimen due to unspecified reason; Z79.899 Other long term (current) drug therapy; Z87.898 Personal history of other specified conditions
CPT/HCPCS: 80048; 80307; 81001; 82009; 82962; 83036; 83735; 84100; 84443; 84484; 85025; 93005; 97802; 99284; J7030; A4216; J7799

== ENCOUNTER 2024-05-04 09:55 | Inpatient (IN) | payer MEDICAID, SELFPAY ==
[2024-05-04 09:55] VITALS: BP 97/74; PULSE 124; RESP 19; TEMP 36.1; O2SAT 98
--- NOTE | 2024-05-04 10:05 | EX.ED.DYSGE1 ---
HPI History of Present Illness Chief Complaint: Hyperglycemia Narrative Narrative: 24-year-old male past medical history of type 1 diabetes, diagnosed 10 years ago, autism presents with elevated blood sugars. He relates history that he was recently admitted for diabetic ketoacidosis 4 to 5 days ago. He states that usually when he is admitted on an insulin drip, he gets discharged from the ICU, and states he does not have time for his blood sugar to stabilize. Yesterday evening, he relates history that EMS was called because his blood sugars were elevated in the 300s to 500s. He is nauseated and vomited in triage. He denies any fevers or chills, no problems with bowel movements, but states that he urinates more because of his diabetes. He also complains of thirst and polydipsia. He states that he has been taking a sliding scale insulin, and his Lantus as previously directed, that his family is able to vouch for him. [facility] Medical History Autism Type 1 diabetes mellitus Home Medications ?Medication ?Instructions ?Recorded ?Last Taken ?Type insulin glargine-yfgn 100 unit/mL 25 unit (0.25 mL) subcut BREAKFAST 04/30/24 Unknown Rx (3 mL) subcutaneous pen #15 mL insulin lispro 100 unit/mL 10 unit (0.1 mL) subcut TID #15 mL 04/30/24 Unknown Rx subcutaneous pen (Humalog KwikPen (U-100) Insulin) lurasidone 40 mg tablet (Latuda) 40 mg PO QHS #30 tabs 04/30/24 Unknown Rx mycophenolate mofetil 250 mg 1,000 mg (4 x 250 mg) PO BID #240 04/30/24 Unknown Rx capsule caps pen needle, diabetic 31 gauge x #100 ea 04/30/24 Unknown Rx 1/4 (Pen Needle) tacrolimus 1 mg capsule, 2 mg (2 x 1 mg) PO BID #120 caps 04/30/24 Unknown Rx immediate-release trazodone 100 mg tablet 200 mg (2 x 100 mg) PO QHS #60 tabs 04/30/24 Unknown Rx Allergy/AdvReac Type Severity Reaction Status Date / Time adhesive tape (tape) Allergy Rash Verified 04/29/24 01:40 ibuprofen Allergy PT UNABLE Verified 04/29/24 01:40 TO RESPOND-NEEDS F/U nitrofurantoin Allergy Rash Verified 04/29/24 01:40 Social History Smoking Status: Current every day smoker tobacco type: cigarettes, e-cigarettes and smokeless tobacco ROS ROS ED ROS Narrative Constitutional: No fever, no chills. HEENT: No sore throat. No neck pain. No loss of vision. No rhinorrhea. Cardiovascular: No chest pain. No palpitations. No pedal edema. Respiratory: No cough, no shortness of breath. Abdominal: No abdominal pain. Positive nausea and vomiting. Genitourinary: No dysuria. No hematuria. Urinary frequency. Endocrine: Polyuria, increased thirst/polydipsia Musculoskeletal: No myalgias. No arthralgias. Neurologic: No headaches. No dizziness. No lightheadedness. Skin: No rash. No change in color. Psychiatric: No depression. No anxiety. EXAM Physical Exam Narrative Exam Narrative: Afebrile. Vital signs noted. Regular rate and rhythm with tachycardia. Lungs clear to auscultation bilaterally. Abdomen soft, nontender with normoactive bowel sounds. No guarding or rebound. Neurological examination nonfocal and nonlateralizing. Const Vital Signs: 05/04/24 09:55 05/04/24 10:04 Temperature 96.9 F L Temperature Source Temporal Pulse Rate 124 H Respiratory Rate 19 H Respiratory Effort Normal Non-Labored Respiratory Pattern Normal Blood Pressure 97/74 Blood Pressure Mean 81 Pulse Ox 98 Oxygen Delivery Method Room Air MDM MDM MDM Narrative Medical decision making narrative: I reviewed the patient's prior records. In review of the EMR, he was seen initially for hyperglycemia and signed out AMA because he states that he has PTSD. He returned approximately 2 hours later and was agreeable to IV placement and laboratory work. Additionally, on his return visit it was noted that he was very rude to staff, and there was concern with his cooperation. Concern is for diabetic ketoacidosis versus diabetic hyperglycemia. Comprehensive workup was pursued. He will be bolused normal saline 2 L intravenously. In discussion with the RN, patient is once again being extremely rude to staff without provocation. He is demanding ultrasound IV placement. However, he did allow IV placement after initially wanted to sign out AGAINST MEDICAL ADVICE and was refusing treatment, but became agreeable after [place] PD arrived. I reviewed his laboratory work from today and he has a normal white count of 7.5, hemoglobin stable at 9.7, hematocrit 34.8, platelet count slightly elevated at 490 which may be an acute phase reactant. Sodium is low at 128 but this is uncorrected. His glucose is elevated on his CMP at 868 with an anion gap of 30. Potassium normal at 4.8, chloride low at 90, CO2 also low at 8.0. He has a large amount of acetone in review of his laboratory work. Urinalysis is negative for infection but there are large ketones as well. He was bolused normal saline, 2 L. While he did have an episode of nausea and vomiting, he is tolerating ice chips. He will be started on an insulin drip given that he is in diabetic ketoacidosis. EKG was obtained and interpreted by myself independently as sinus tachycardia at around [address] changes. No STEMI. Venous blood gas obtained and reviewed, his pH is slightly low at 7.23 with a CO2 of 10.7. I discussed patient with Dr. Lucas for admission to the ICU. In discussion, bicarbonate drip was deferred, and he will continue IV fluids. Critical care time 32 minutes. Disposition is admit to the ICU in guarded condition. History & Record Review Discussion w/independent historian: Patient Additional record(s) reviewed:: Prior inpatient record, Prior ED visit and Prior labs Lab Data Attestation: I reviewed the patient's lab results. Labs: Laboratory Results - last 24 hr 05/04/24 05/04/24 10:46 10:55 WBC 7.5 RBC 4.88 Hgb 9.7 L Hct 34.8 L MCV 71.3 L MCH 19.9 L MCHC 27.9 L RDW Std Deviation 43.8 RDW Coeff of Aminah 17.9 H Plt Count 490 H MPV 9.8 Immature Gran % (Auto) 0.700 Neut % (Auto) 65.4 Lymph % (Auto) 26.0 [place] % (Auto) 6.3 Eos % (Auto) 0.9 Baso % (Auto) 0.7 Absolute Neuts (auto) 4.9 Absolute Lymphs (auto) 1.94 Nucleated RBC % 0 Sodium 128 L Potassium 4.8 Chloride 90 L Carbon Dioxide 8.0 L* Anion Gap 30 H BUN 41 H Creatinine 1.95 H Est GFR (MDRD) Af Amer 55 L Est GFR (MDRD) Non-Af 46 L BUN/Creatinine Ratio 21.0 H Glucose 868 H* Calcium 9.7 Total Bilirubin 0.80 AST 14 L ALT 22 Alkaline Phosphatase 103 Total Protein 7.6 Albumin 3.9 Globulin 3.7 Albumin/Globulin Ratio 1.1 Urine Color Yellow Urine Clarity Clear Urine pH 6.0 Ur Specific [place] 1.010 Urine Protein 30 H Urine Glucose (UA) 1000 H Urine Ketones 150 A* Urine Occult Blood Negative Urine Nitrite Negative Urine Bilirubin Negative Urine Urobilinogen Normal Ur Leukocyte Esterase Negative Urine RBC 0 SEEN Urine WBC 0 SEEN Ur Squamous Epith Cells 0 SEEN Urine Bacteria 0 SEEN Urine Mucus 0 SEEN Acetone Level LARGE H ABG Data ABG results: ABG 05/04/24 11:28 Specimen Type AURA Sample Site Not entered VBG pH 7.24 L VBG pO2 169 H VBG HCO3 5 L VBG Total CO2 < 5 L VBG O2 Sat (Calc) 99 H VBG Base Excess -23 L POC Mix VBG pCO2 Pt Tmp 10.7 L* O2 Delivery Device Room Air Crit Call To/Read Back Yes Blood Gas Notified Whom reodica Blood Gas Notified Time 11:30:31 Management Discussion w/another healthcare provider: Hospitalist (Dr. Lucas) Critical Care Time Critical Care Time: Yes Critical care time (excluding procedures): 30-74 minutes (32), Including time spent:, Discussing w/Patient &/or Family/Peach Grower, Discussing w/Consultants, Arranging Admission or Transfer and Performing Direct Patient Care at Bedside Discharge Plan Dx/Rx/DC Orders Clinical Impression: DKA (diabetic ketoacidosis), Type 1 diabetes mellitus, Autism, PTSD (post-traumatic stress disorder) Disposition Disposition: Acute Care Hospital [facility] Discharge Date/Time: 05/04/24 12:17
--- NOTE | 2024-05-04 10:16 | ED.RN ---
Pt was been seen by and multiple nurses. 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 Respiratory went into the room and tried to do an EKG and the patient refused. Pt was asked to sign an AMA form and he said that he was not leaving and we had to treat him. I told him that we were trying to treat him and he refused. He response was Damn right I refused. I than said again, then you can leave. Security was called to the room and he is still refusing to leave. PD has been called.
--- NOTE | 2024-05-04 10:19 | ED.RN ---
this rn goes to assist medic and medic student with IV start- pt told medic that he is only able to have ultrasound iv. this rn goes in to look to attempt without ultrasound and pt becomes agitated and raises his voice stating that he needs the ultrasound iv to start a superficial iv in his upper arm. this rn explains to patient that if he has veins that are visible, we would prefer to not utilize the ultrasoudn since its not warranted. pt becomes increasingly agitated and this rn tells pt that he will not raise his voice to staff. pt tells staff that staff does not know what theyre doing. he states that he is autistic and has ptsd and cannot have an iv in the crease of his arm or his hand because the sensation bothers him. pt states that staff will not touch him and he is calling his mom since she is a nurse. this rn states sure and exits the room. charge nurse and physician aware. additional rn leaves room stating pt wants to leave ama. ama paperwork taken in and pt refuses to sign for charge nurse. charge nurse explains that we cannot treat him without touching him and doing what needs to be done. pt states hes not leaving and zach carlos diaz/d
--- NOTE | 2024-05-04 10:41 | ED.RN ---
PD arrived and pt agreed to let us do treatment at this time. Chelsea is in the room attempting IV at this time.
[2024-05-04 10:58] LABS: Bacteria 0 SEEN /hpf (None Seen); Mucous, Urine 0 SEEN /hpf (<or=2+); Red Blood Cells-Urine 0 SEEN /hpf (0-5); Squamous Epithelial Cells - UA 0 SEEN /hpf (0-5); White Blood Cells 0 SEEN /hpf (0-5)
[2024-05-04 11:01] LABS: Color, Urine Yellow (Yellow); Glucose, Dipstick 1000 mg/dl (Normal); Leukocyte Esterase-Dipstick Negative /ul (Negative); Nitrite-Dipstick Negative (Negative); Occult Blood-Urine Negative /ul (Negative); Protein-Dipstick 30 mg/dl (Negative); Urine Bilirubin Dipstick Negative (Negative); Urine Clarity Clear (Clear); Urine Urobilinogen Normal (Normal)
[2024-05-04 11:01] LABS: Absolute Lymphocyte Count 1.94 X10^3/uL (0.83-4.51); Absolute Neutrophil Count 4.9 X10^3/uL (2.0-7.7); Basophil# 0.05 X10^3/uL; Basophil% 0.7 % (0-1); Eosinophil# 0.07 X10^3/uL; Eosinophils% 0.9 % (0-5); Hematocrit 34.8 % (40-54); Hemoglobin 9.7 g/dL (13.0-16.5); Lymphocyte # 1.94 X10^3/ul (0.83-4.51); Mean Corp Hgb Conc 27.9 g/dL (32-36); Mean Corpuscular Hgb 19.9 pg (27.0-32.0); Mean Corpuscular Volume 71.3 fL (80-94); Mean Platelet Vol. 9.8 fl (6.2-12.0); Monocyte# 0.47 X10^3/uL; Monocyte% 6.3 % (0-10); NRBC Flagged by Analyzer 0 % (0-5); Neutrophil # 4.88 X10^3/uL (2.7-7.7); Neutrophil % 65.4 % (47-70); Platelet Count 490 K/mm3 (150-450); RBC Distribution Width CV 17.9 % (11.6-14.6); RBC Distribution Width SD 43.8 fl (35.1-43.9); Red Blood Count 4.88 M/mm3 (4.6-6.2); White Blood Count 7.5 K/mm3 (4.4-11.0)
[2024-05-04 11:06] LABS: Ketone-Dipstick 150 mg/dl (Negative)
[2024-05-04 11:16] LABS: ALB/GLOB Ratio 1.1 RATIO (0.9-2.4); AST(SGOT) 14 U/L (15-37); Alanine Aminotransfer ALT/SGPT 22 U/L (16-61); Albumin, Serum 3.9 g/dL (3.2-5.0); Alkaline Phosphatase 103 U/L (45-117); Anion Gap 30 (5-15); BUN 41 mg/dL (7-18); Calcium,Total 9.7 mg/dL (8.5-10.1); Chloride 90 mmol/L (98-107); Creatinine, Serum 1.95 mg/dL (0.70-1.30); EST Glomerular Filtration Rate 46 mL/min (>60); Est Glom Filt Rate - Afr Amer 55 mL/min (>60); Globulin 3.7 g/dL (2.2-4.2); Glucose 868 mg/dL (74-106); Potassium 4.8 mmol/L (3.5-5.1); Protein, Total 7.6 g/dL (6.4-8.2); Sodium Level 128 mmol/L (136-145)
[2024-05-04] MEDS: 0.9% Normal Saline (1000mL) 1,000 ML 999 ML IV ×5 (11:20→18:07)
--- NOTE | 2024-05-04 11:24 | EKG12_ITS ---
Test Reason : DKA Blood Pressure : / mmHG Vent. Rate : 111 BPM Atrial Rate : 111 BPM P-R Int : 144 ms QRS Dur : 080 ms QT Int : 330 ms P-R-T Axes : 057 057 066 degrees QTc Int : 448 ms Sinus tachycardia Otherwise normal ECG Confirmed by SYED GEIGER, SILVIA ([id number]), videotape editor RAJNI VELEZ ([id number]) on 05/06/2024 9:49:50 AM Referred By: MICHAEL Confirmed By:MATTHIEU LYNCH MD
--- NOTE | 2024-05-04 11:28 | ED.RN ---
pt refusing to wear monitoring coordinator because it irritates his sensory issues. dr. solomon aware
[2024-05-04 11:31] VITALS: BMI 20.5
[2024-05-04 11:32] LABS: Blood Gas Specimen Type VEN; O2 Delivery Device Room Air; SITE Not entered; Time Given 11:30:31; VBG BASE EXCESS -23 mmol/L (-1.0-3.5); VBG Bicarbonate 5 mmol/L (22-26); VBG PO2 169 mmHg (25-40); VBG SO2 99 % (50-70); VBG TCO2 < 5 mmol/L (23-33); VBG pCO2 10.7 mmHg (41-51); VBG pH 7.24 (7.32-7.42)
[2024-05-04] MEDS: Insulin Lispro 100 UNIT in 0.9% Normal Saline (100mL Bag) 99 ML 6.5 UNIT CONT INF (11:53)
[2024-05-04] MEDS: LORazepam 2 MG/ML Syringe 0.5 MG IV (12:13)
[2024-05-04 12:53] VITALS: BMI 20.5
[2024-05-04 13:00] VITALS: BP 137/84; PULSE 105; RESP 28; TEMP 36.8; O2SAT 100
[2024-05-04 13:13] LABS: Bedside Glucose > 500 mg/dL (74-106)
[2024-05-04 13:19] LABS: Anion Gap 31 (5-15); BUN 42 mg/dL (7-18); BUN/Creat Ratio 22.1 RATIO (10-20); Calcium,Total 8.7 mg/dL (8.5-10.1); Chloride 99 mmol/L (98-107); EST Glomerular Filtration Rate 47 mL/min (>60); Est Glom Filt Rate - Afr Amer 57 mL/min (>60); Estimated Creatinine Clearance 55.89 ml/min; Glucose 780 mg/dL (74-106); Potassium 4.5 mmol/L (3.5-5.1); Sodium Level 133 mmol/L (136-145)
--- NOTE | 2024-05-04 14:22 | HP.PCM.HOS_ITS ---
HPI - General General Date of Admission: 05/04/24 Date of Service: 05/04/24 Chief Complaint: Elevated blood sugar HPI Narrative CROW AVALOS, is a 24 M who presents to the emergency room at [facility] due to elevated blood sugar. Patient had been recently discharged from the hospital here for treatment for DKA, comorbidities include PTSD and autism. Lab work done in the ER revealed a CBC which was remarkable for hemoglobin of 9.7, venous blood gas was drawn-pH was 7.24 bicarb was 5, chemistry profile showed a sodium of 128, bicarb of 8, chloride of 90, and anion gap of 30, BUN of 41, and a creatinine of 1.95. Urinalysis was remarkable for glucose and ketones and urinary protein. Patient will be admitted to ICU for DKA, he will be placed on an insulin drip, I have written for a PICC line to be placed because the patient has behavioral issues and refuses lab draws and blood sugars frequently. I have elected to let the patient have ice chips and diet pop-patient requested this and I am okay with this. I have also elected to place the patient on Ativan, he complained of anxiety when he was here last time and he states that he vomits when he gets anxious, I asked him if he wanted to take something for anxiety and he said yes. [facility] Medical History Autism Type 1 diabetes mellitus Home Medications ?Medication ?Instructions ?Recorded ?Last Taken ?Type insulin glargine-yfgn 100 unit/mL 25 unit (0.25 mL) subcut BREAKFAST 04/30/24 Unknown Rx (3 mL) subcutaneous pen #15 mL insulin lispro 100 unit/mL 10 unit (0.1 mL) subcut TID #15 mL 04/30/24 Unknown Rx subcutaneous pen (Humalog KwikPen (U-100) Insulin) lurasidone 40 mg tablet (Latuda) 40 mg PO QHS #30 tabs 04/30/24 Unknown Rx mycophenolate mofetil 250 mg 1,000 mg (4 x 250 mg) PO BID #240 04/30/24 Unknown Rx capsule caps pen needle, diabetic 31 gauge x #100 ea 04/30/24 Unknown Rx 1/4 (Pen Needle) tacrolimus 1 mg capsule, 2 mg (2 x 1 mg) PO BID #120 caps 04/30/24 Unknown Rx immediate-release trazodone 100 mg tablet 200 mg (2 x 100 mg) PO QHS #60 tabs 04/30/24 Unknown Rx Allergy/AdvReac Type Severity Reaction Status Date / Time adhesive tape (tape) Allergy Rash Verified 04/29/24 01:40 ibuprofen Allergy PT UNABLE Verified 04/29/24 01:40 TO RESPOND-NEEDS F/U nitrofurantoin Allergy Rash Verified 04/29/24 01:40 Social History Smoking Status: Current every day smoker tobacco type: cigarettes, e-cigarettes and smokeless tobacco ROS ROS Narrative Review of systems was unobtainable due to the patient's cognitive impairment and psychiatric disorder Vital Signs Vital Signs Vital Signs: 05/04/24 09:55 05/04/24 10:04 05/04/24 13:00 Temperature 96.9 F L 98.3 F Temperature Source Temporal Temporal Pulse Rate 124 H 105 H Respiratory Rate 19 H 28 H Respiratory Effort Normal Non-Labored Respiratory Pattern Normal Blood Pressure 97/74 137/84 H Blood Pressure Mean 81 101 Blood Pressure Source Monitor Blood Pressure Position Semi-Fowlers Blood Pressure Location Right Arm Pulse Ox 98 100 Oxygen Delivery Method Room Air Room Air Weight Weight: 64.8 kg Body Mass Index (BMI) 20.5 Physical Exam Const alert Constitutional Narrative: Patient is cachectic appearing General Appearance: cooperative, well kempt and well developed Orientation / Consciousness: awake, oriented to person and oriented to place HEENT normocephalic HEENT Narrative: Patient's mucous membranes are extremely dry Eyes PERRL, EOMs intact bilaterally and conjunctivae normal Neck supple, no JVD, thyroid normal and no carotid bruits General: trachea midline Resp no retractions, no use of accessory muscles and clear to auscultation bilaterally Resp Narrative: Patient has rapid respirations Auscultation: Negative for rales, rhonchi or wheezes Cardio regular rate, regular rhythm, S1 normal heart sound, S2 normal heart sound, no murmurs, no rub and no gallops Cardio Narrative: Patient is tachycardic GI normal to inspection, nondistended, normoactive bowel sounds, soft to palpation, non-tender and non-distended Extremity no clubbing, cyanosis or edema Skin no rashes or lesions noted General Skin Exam: no breakdown Neuro CN's II-XII intact bilaterally, no focal motor deficits and no sensory deficits noted Sensorium / Orientation: awake, alert, oriented to person and oriented to place Speech: speech normal Psych Psych Narrative: Patient has some signs of cognitive impairment Results Lab / Micro Data 05/04/24 10:46 05/04/24 12:45 Labs: Laboratory Results - last 24 hr 05/04/24 10:46: WBC 7.5, RBC 4.88, Hgb 9.7 L, Hct 34.8 L, MCV 71.3 L, MCH 19.9 L , MCHC 27.9 L, RDW Std Deviation 43.8, RDW Coeff of Aminah 17.9 H, Plt Count 490 H, MPV 9.8, Immature Gran % (Auto) 0.700, Neut % (Auto) 65.4, Lymph % (Auto) 26.0, [place] % (Auto) 6.3, Eos % (Auto) 0.9, Baso % (Auto) 0.7, Absolute Neuts (auto) 4.9, Absolute Lymphs (auto) 1.94, Nucleated RBC % 0, Sodium 128 L, Potassium 4.8, Chloride 90 L, Carbon Dioxide 8.0 L*, Anion Gap 30 H, BUN 41 H, Creatinine 1.95 H, Est GFR (MDRD) Af Amer 55 L, Est GFR (MDRD) Non-Af 46 L, BUN/Creatinine Ratio 21.0 H, Glucose 868 H*, Calcium 9.7, Total Bilirubin 0.80, AST 14 L, ALT 22, Alkaline Phosphatase 103, Total Protein 7.6, Albumin 3.9, Globulin 3.7, Albumin/Globulin Ratio 1.1, Acetone Level LARGE H 05/04/24 10:55: Urine Color Yellow, Urine Clarity Clear, Urine pH 6.0, Ur Specific [place] 1.010, Urine Protein 30 H, Urine Glucose (UA) 1000 H, Urine Ketones 150 A*, Urine Occult Blood Negative, Urine Nitrite Negative, Urine Bilirubin Negative, Urine Urobilinogen Normal, Ur Leukocyte Esterase Negative, Urine RBC 0 SEEN, Urine WBC 0 SEEN, Ur Squamous Epith Cells 0 SEEN, Urine Bacteria 0 SEEN, Urine Mucus 0 SEEN 05/04/24 12:29: POC Glucose > 500 H* 05/04/24 12:45: Sodium 133 L, Potassium 4.5, Chloride 99, Carbon Dioxide 3.0 L*, Anion Gap 31 H, BUN 42 H, Creatinine 1.90 H, Estim Creat Clear Calc 55.89, Est GFR (MDRD) Af Amer 57 L, Est GFR (MDRD) Non-Af 47 L, BUN/Creatinine Ratio 22.1 H , Glucose 780 H* 05/04/24 12:45: Glucose Cancelled, Calcium 8.7 ABG Data ABG results: ABG 05/04/24 11:28 Specimen Type AURA Sample Site Not entered VBG pH 7.24 L VBG pO2 169 H VBG HCO3 5 L VBG Total CO2 < 5 L VBG O2 Sat (Calc) 99 H VBG Base Excess -23 L POC Mix VBG pCO2 Pt Tmp 10.7 L* O2 Delivery Device Room Air Crit Call To/Read Back Yes Blood Gas Notified Whom [email or web address] Blood Gas Notified Time 11:30:31 Assessment & Plan Assessment/Plan (1) Type 1 diabetes mellitus: QUALIFIERS: Diabetes mellitus complication status: without complication Qualified Code(s): E10.9 - Type 1 diabetes mellitus without complications PLAN: Plan 1. DKA-exact reason unclear, patient may be noncompliant at home with his medications or may need additional adjustment with his basal and short acting insulin. Patient will be admitted to ICU, he will be given IV fluids, labs will be monitored, PICC line will be inserted, patient does not like telemetry and I do not think it is necessary for the patient. #2 ALBA-patient will be given IV fluids, labs will be monitored #3 autism and PTSD-I have decided to place patient on Ativan, last admission he appeared to be anxious at times, I think this would benefit the patient, patient will remain on his home medications #4 history of kidney transplant-patient will remain on his antirejection drugs #5 anemia-probably of chronic disease, I will draw iron studies and ferritin in the morning Total clinical time spent by myself addressing the patient's medical issues, reviewing all of his data, and collaborating with patient's care team: 75 minutes Charges/Coding Visit Charges Inpatient E&M: 13901 Init Hosp L3
[2024-05-04 14:39] LABS: Bedside Glucose 360 mg/dL (74-106)
[2024-05-04 15:31] LABS: Bedside Glucose 245 mg/dL (74-106)
[2024-05-04 15:45] VITALS: BP 111/62; PULSE 96; RESP 20; TEMP 36.6; O2SAT 100
[2024-05-04 16:34] LABS: Anion Gap 19 (5-15); BUN 33 mg/dL (7-18); BUN/Creat Ratio 22.1 RATIO (10-20); Calcium,Total 8.3 mg/dL (8.5-10.1); Chloride 112 mmol/L (98-107); Creatinine, Serum 1.49 mg/dL (0.70-1.30); EST Glomerular Filtration Rate 63 mL/min (>60); Est Glom Filt Rate - Afr Amer 76 mL/min (>60); Estimated Creatinine Clearance 71.28 ml/min; Glucose 243 mg/dL (74-106); Potassium 4.2 mmol/L (3.5-5.1); Sodium Level 141 mmol/L (136-145)
--- NOTE | 2024-05-04 16:50 | CASEMGMT ---
Social Work Consult received from nursing carpenter supervisor wooden ship regarding this patient who has been to [facility] three times since 04.28.2024. Admissions to ICU: 6.9., 6.1024, and 6.15.. All for DKA related issues. Chart reviewed and noted this 24 year old patient has recently moved from [place] to [place]. In addition to Diabetes, patient has reported diagnoses of PTSD and autism spectrum. Noted there is a sister whom the patient lives with. Per notation from the ED, the patient made comments about the patient's mother being a nurse, and the patient an EMT. It appears from chart patient lives with family, including his parents, sister, and a [id number]. During prior admissions, the patient had [place] Medicaid, so unable to get [place] Medicaid yet. From chart review it appears patient has been resistant to speaking with [employer] accounts payable representative. The patient's sister was given the numbers to call to get the process started. Should new prescriptions be needed this could be a barrier for patient until gets [facility] as patient used the hospital prescription assistant clinical nurse manager program last admission, so is not eligible for this again this year. This typewriter assembler to ICU to check in with patient discuss barriers to care, coping, supports and possible community resources; however, patient getting a PICC line so not the right time to attempt a sensitive conversation as well as factoring in that patient does potential for labile reactions. SW to continue to follow. -JOSE DAVID Chandler
[2024-05-04 17:40] LABS: Bedside Glucose 219 mg/dL (74-106)
[2024-05-04] MEDS: 0.9% Saline Lock 10 ML Syringe IV (18:17)
[2024-05-04] MEDS: 0.9% Normal Saline (1000mL) 1,000 ML 500 ML IV (18:17)
[2024-05-04 18:45] LABS: Bedside Glucose 202 mg/dL (74-106)
[2024-05-04] MEDS: Insulin Glargine-YFGN 100 UNIT/ML Pen 35 UNIT SC (19:41)
[2024-05-04 20:00] VITALS: BP 130/94; PULSE 87; RESP 18; TEMP 36.8; O2SAT 100
[2024-05-04 20:01] LABS: Bedside Glucose 154 mg/dL (74-106)
[2024-05-04] MEDS: traZODone 100 MG Tablet 200 MG PO (20:06)
[2024-05-04] MEDS: LURASIDONE HCL 40 MG TABLET PO (20:06)
[2024-05-04] MEDS: Mycophenolate Mofetil 250 MG Capsule 1000 MG PO (20:06)
[2024-05-04 20:07] LABS: Anion Gap 13 (5-15); BUN 24 mg/dL (7-18); BUN/Creat Ratio 20.2 RATIO (10-20); Calcium,Total 7.4 mg/dL (8.5-10.1); Chloride 111 mmol/L (98-107); Creatinine, Serum 1.19 mg/dL (0.70-1.30); EST Glomerular Filtration Rate 81 mL/min (>60); Est Glom Filt Rate - Afr Amer 98 mL/min (>60); Estimated Creatinine Clearance 89.24 ml/min; Glucose 164 mg/dL (74-106); Potassium 3.9 mmol/L (3.5-5.1); Sodium Level 139 mmol/L (136-145)
[2024-05-04] MEDS: Insulin Lispro 100 UNIT/ML INSULN.PEN SC (20:07)
[2024-05-04] MEDS: Tacrolimus Anhydrous 1 MG Capsule 2 MG PO (20:07)
[2024-05-04] MEDS: 0.9% Normal Saline (1000mL) 1,000 ML 175 ML IV (20:12)
[2024-05-05] VITALS: BP 128/78; PULSE 82; RESP 17; TEMP 36.4; O2SAT 100
[2024-05-05 00:16] LABS: Anion Gap 12 (5-15); BUN 21 mg/dL (7-18); BUN/Creat Ratio 15.3 RATIO (10-20); Calcium,Total 7.6 mg/dL (8.5-10.1); Chloride 107 mmol/L (98-107); Creatinine, Serum 1.37 mg/dL (0.70-1.30); EST Glomerular Filtration Rate 69 mL/min (>60); Est Glom Filt Rate - Afr Amer 83 mL/min (>60); Estimated Creatinine Clearance 77.52 ml/min; Glucose 361 mg/dL (74-106); Sodium Level 136 mmol/L (136-145)
[2024-05-05] MEDS: Insulin Lispro 100 UNIT/ML INSULN.PEN 10 UNIT SC (00:46)
[2024-05-05] MEDS: 0.9% Normal Saline (1000mL) 1,000 ML 175 ML IV ×2 (01:00→08:43)
[2024-05-05 04:13] LABS: Bedside Glucose 236 mg/dL (74-106)
[2024-05-05 04:56] LABS: Anion Gap 7 (5-15); BUN 18 mg/dL (7-18); BUN/Creat Ratio 14.9 RATIO (10-20); Calcium,Total 7.8 mg/dL (8.5-10.1); Chloride 113 mmol/L (98-107); Creatinine, Serum 1.21 mg/dL (0.70-1.30); EST Glomerular Filtration Rate 80 mL/min (>60); Est Glom Filt Rate - Afr Amer 96 mL/min (>60); Estimated Creatinine Clearance 87.77 ml/min; Ferritin 9 ng/mL (26-388); Glucose 255 mg/dL (74-106); Iron 11 ug/dL (65-175); Iron Binding Capacity,Total 215 ug/dL (250-450); PERCENT IRON SATURATION 5.1 % (15.0-55.0); Potassium 3.3 mmol/L (3.5-5.1); Sodium Level 140 mmol/L (136-145)
[2024-05-05 05:00] VITALS: BP 130/83; PULSE 89; RESP 18; O2SAT 100
[2024-05-05 06:00] VITALS: BMI 20.5
[2024-05-05 08:00] VITALS: BP 124/93; PULSE 96; RESP 22; TEMP 36.7; O2SAT 100
[2024-05-05] MEDS: Sodium Ferric Gluconat/Sucrose 250 MG in 0.9% Normal Saline (250mL Bag) 250 ML 135 MG IV (08:25)
[2024-05-05] MEDS: Insulin Lispro 100 UNIT/ML INSULN.PEN SC (08:41)
[2024-05-05] MEDS: Insulin Lispro 100 UNIT/ML INSULN.PEN 15 UNIT SC (08:42)
[2024-05-05] MEDS: Insulin Glargine-YFGN 100 UNIT/ML Pen 35 UNIT SC (08:42)
[2024-05-05 08:53] LABS: Bedside Glucose 198 mg/dL (74-106)
[2024-05-05] MEDS: Potassium Chloride Oral Tablet 20 MEQ PO (10:35)
[2024-05-05] MEDS: Mycophenolate Mofetil 250 MG Capsule 1000 MG PO (10:36)
[2024-05-05] MEDS: Tacrolimus Anhydrous 1 MG Capsule 2 MG PO (10:36)
--- NOTE | 2024-05-05 12:23 | DCINST_ITS ---
Discharge Instructions Diet Discharge Diet: 2200 Calorie Control Diet Activity Discharge Activity: Return to Normal Activity Weight Bearing Status: Full weight bearing Follow Up Care Test Results: Test results from this visit will be discussed in further detail at your follow- up appointment, if applicable. Discharge Plan Admission Admit Date/Time: 05/04/24 12:05 Primary Reason for Your Visit: DKA Attending Provider: Remington Lucas Primary Care Provider: Care Physician,No Primary Discharge Orders/Prescriptions Prescriptions: New insulin lispro [Humalog KwikPen Insulin] 100 unit/mL Insulin Pen 15 unit subcut TIDAC Qty: 0 0RF insulin glargine-yfgn 100 unit/mL (3 mL) Insulin Pen 35 unit subcut BID@0800,2000 Qty: 0 0RF Continued mycophenolate mofetil 250 mg Capsule 1,000 mg PO BID Qty: 240 0RF tacrolimus 1 mg Capsule 2 mg PO BID Qty: 120 0RF lurasidone [Latuda] 40 mg Tablet 40 mg PO QHS Qty: 30 0RF trazodone 100 mg Tablet 200 mg PO QHS Qty: 60 0RF (DME) pen needle, diabetic [Pen Needle] 31 gauge x 1/4 needle See Rx Instructions .Route Qty: 100 0RF Rx Instructions: As directed Discontinued insulin glargine-yfgn 100 unit/mL (3 mL) Insulin Pen 25 unit subcut BREAKFAST Qty: 15 0RF insulin lispro [Humalog KwikPen Insulin] 100 unit/mL insulin pen 10 unit subcut TID Qty: 15 0RF Referrals / Follow Up: Anamika Mata [Non-Staff] - See Referral Note (As scheduled) Care Physician,No Primary [Primary Care Provider] - Disposition Disposition (needs filled in before D/C Order can be placed): Home, Self Care
[2024-05-05 12:26] VITALS: BP 120/76; PULSE 92; RESP 17; TEMP 36.8; O2SAT 100
--- NOTE | 2024-05-05 12:26 | PCM.DC.SUM ---
Providers Date of Admission: 05/04/24 Date of Discharge: 05/05/24 Primary Care Physician: No Primary Care Phys Reason For Visit: DKA Diagnosis Discharge Diagnosis (1) Type 1 diabetes mellitus: Status: Acute Code(s): E10.9 - Type 1 diabetes mellitus without complications Qualifiers: Diabetes mellitus complication status: without complication Qualified Code(s): E10.9 - Type 1 diabetes mellitus without complications Plan 1. DKA-exact reason unclear, patient may be noncompliant at home with his medications or may need additional adjustment with his basal and short acting insulin. Patient will be admitted to ICU, he will be given IV fluids, labs will be monitored, PICC line will be inserted, patient does not like telemetry and I do not think it is necessary for the patient. #2 ALBA-patient will be given IV fluids, labs will be monitored #3 autism and PTSD-I have decided to place patient on Ativan, last admission he appeared to be anxious at times, I think this would benefit the patient, patient will remain on his home medications #4 history of kidney transplant-patient will remain on his antirejection drugs #5 anemia-probably of chronic disease, I will draw iron studies and ferritin in the morning Total clinical time spent by myself addressing the patient's medical issues, reviewing all of his data, and collaborating with patient's care team: 75 minutes Medications at Discharge Home Medications lurasidone 40 mg tablet (Latuda) 40 mg PO QHS #30 tabs 04/30/24 mycophenolate mofetil 250 mg capsule 1,000 mg (4 x 250 mg) PO BID #240 caps 04/30/24 pen needle, diabetic 31 gauge x 1/4 (Pen Needle) #100 ea 04/30/24 tacrolimus 1 mg capsule, immediate-release 2 mg (2 x 1 mg) PO BID #120 caps 04/30/24 trazodone 100 mg tablet 200 mg (2 x 100 mg) PO QHS #60 tabs 04/30/24 insulin glargine-yfgn 100 unit/mL (3 mL) subcutaneous pen 35 unit (0.35 mL) subcut BID@0800,2000 #0 mL 05/05/24 insulin lispro 100 unit/mL subcutaneous pen (Humalog KwikPen (U-100) Insulin) 15 unit (0.15 mL) subcut TIDAC #0 mL 05/05/24 Hospital Course Operations None Procedures None Summary of Care Provided Minutes Spent on Discharge: 30 Hospital Course: This 24-year-old white male was seen in the emergency room at [facility] with complaints of elevated blood sugar. He had been seen in the hospital here earlier in April for DKA. Labs obtained in the emergency room revealed the patient to be in DKA, he also had evidence of acute kidney injury on his lab. Patient was admitted to ICU, PICC line was inserted for ease of blood draws, patient was placed on an insulin drip and given IV fluids. Patient turned around quickly and felt much better a few hours later. On 05/05/2024, patient was seen and examined: On examination he appeared in good health and spirits. Vital signs as documented. Skin warm and dry and without overt rashes. Neck without JVD, neck was supple, trachea midline, thyroid was normal. Lungs clear bilaterally, normal air movement was noted. Heart exam notable for regular rhythm, normal sounds and absence of murmurs, rubs or gallops. Abdomen unremarkable and without evidence of organomegaly, masses, or abdominal aortic enlargement. Bowel sounds are present, abdomen is not distended. Extremities nonedematous, no cyanosis was noted, no clubbing was noted. Neuro: Cranial nerves II through XII are grossly intact, no focal motor deficits were noted, sensation to light touch and pinprick intact, motor exam 5/5 throughout. Psych: Patient is alert and oriented x3, he does not appear anxious or depressed, he does not appear agitated. Patient appears stable for discharge home on 05/05/2024. Weight / BMI Weight Weight: 65.1 kg Body Mass Index (BMI) 20.5 ABG / Lab / Microbiology Data 05/04/24 10:46 05/05/24 03:50 Laboratory: Laboratory Results - last 24 hr 05/04/24 12:29: POC Glucose > 500 H* 05/04/24 12:45: Sodium 133 L, Potassium 4.5, Chloride 99, Carbon Dioxide 3.0 L*, Anion Gap 31 H, BUN 42 H, Creatinine 1.90 H, Estim Creat Clear Calc 55.89, Est GFR (MDRD) Af Amer 57 L, Est GFR (MDRD) Non-Af 47 L, BUN/Creatinine Ratio 22.1 H, Glucose 780 H* 05/04/24 12:45: Glucose Cancelled, Calcium 8.7 05/04/24 14:20: POC Glucose 360 H 05/04/24 15:14: POC Glucose 245 H 05/04/24 16:00: Sodium 141, Potassium 4.2, Chloride 112 H, Carbon Dioxide 10.0 L, Anion Gap 19 H, BUN 33 H, Creatinine 1.49 H, Estim Creat Clear Calc 71.28, Est GFR (MDRD) Af Amer 76, Est GFR (MDRD) Non-Af 63, BUN/Creatinine Ratio 22.1 H, Glucose 243 H, Calcium 8.3 L 05/04/24 17:21: POC Glucose 219 H 05/04/24 18:22: POC Glucose 202 H 05/04/24 19:40: POC Glucose 154 H 05/04/24 19:41: Sodium 139, Potassium 3.9, Chloride 111 H, Carbon Dioxide 15.0 L, Anion Gap 13, BUN 24 H, Creatinine 1.19, Estim Creat Clear Calc 89.24, Est GFR (MDRD) Af Amer 98, Est GFR (MDRD) Non-Af 81, BUN/Creatinine Ratio 20.2 H, Glucose 164 H, Calcium 7.4 L 05/04/24 23:38: Sodium 136, Potassium 4.0, Chloride 107, Carbon Dioxide 17.0 L, Anion Gap 12, BUN 21 H, Creatinine 1.37 H, Estim Creat Clear Calc 77.52, Est GFR (MDRD) Af Amer 83, Est GFR (MDRD) Non-Af 69, BUN/Creatinine Ratio 15.3, Glucose 361 H, Calcium 7.6 L 05/05/24 03:50: Sodium 140, Potassium 3.3 L, Chloride 113 H, Carbon Dioxide 20.0 L, Anion Gap 7, BUN 18, Creatinine 1.21, Estim Creat Clear Calc 87.77, Est GFR (MDRD) Af Amer 96, Est GFR (MDRD) Non-Af 80, BUN/Creatinine Ratio 14.9, Glucose 255 H, Calcium 7.8 L, Iron 11 L, TIBC 215 L, Iron Saturation 5.1 L, Ferritin 9 L 05/05/24 03:53: POC Glucose 236 H 05/05/24 08:23: POC Glucose 198 H D/C Instructions Discharge Diet: 0 Calorie Control Diet Weight Bearing Status: Full weight bearing Meaningful Use Info Meaningful Use Meaningful Use Diagnoses (Choose all that apply): None applicable Ischemic Stroke Statin Dosing Therapy Reference: STATIN DOSE THERAPY REFERENCE: * Patients > 75 years receive moderate or high dose statin therapy. * Patients 75 years or YOUNGER should receive HIGH intensity statin dose unless contraindicated. You will be required to document reason for non-treatment if statin daily dose does not meet guidelines. HIGH DOSE STATIN THERAPY DAILY Atorvastatin > than or = to 40 mg Rosuvastatin > than or = to 20 mg Amlodipine + Atorvastatin > than or = to 2.5/40 mg Ezetimibe + Simvastatin 10/80 mg Simvastatin 80mg Discharge Plan Admission Admit Date/Time: 05/04/24 12:05 Primary Reason for Your Visit: DKA Attending Provider: Remington Lucas Primary Care Provider: Care Physician,No Primary Discharge Orders/Prescriptions Prescriptions: New insulin lispro [Humalog KwikPen Insulin] 100 unit/mL Insulin Pen 15 unit subcut TIDAC Qty: 0 0RF insulin glargine-yfgn 100 unit/mL (3 mL) Insulin Pen 35 unit subcut BID@0800,2000 Qty: 0 0RF Continued mycophenolate mofetil 250 mg Capsule 1,000 mg PO BID Qty: 240 0RF tacrolimus 1 mg Capsule 2 mg PO BID Qty: 120 0RF lurasidone [Latuda] 40 mg Tablet 40 mg PO QHS Qty: 30 0RF trazodone 100 mg Tablet 200 mg PO QHS Qty: 60 0RF (DME) pen needle, diabetic [Pen Needle] 31 gauge x 1/4 needle See Rx Instructions .Route Qty: 100 0RF Rx Instructions: As directed Discontinued insulin glargine-yfgn 100 unit/mL (3 mL) Insulin Pen 25 unit subcut BREAKFAST Qty: 15 0RF insulin lispro [Humalog KwikPen Insulin] 100 unit/mL insulin pen 10 unit subcut TID Qty: 15 0RF Referrals / Follow Up: Anamika Mata [Non-Staff] - See Referral Note (As scheduled) Care Physician,No Primary [Primary Care Provider] - Disposition Disposition (needs filled in before D/C Order can be placed): Home, Self Care Charges/Coding Visit Charges Inpatient E&M: 26720 Disch Hosp
[2024-05-05 12:55] LABS: Bedside Glucose 71 mg/dL (74-106)
== END 2024-05-05 13:00 | disposition home or self-care (01) | DRG 420 ==
LOC: ED 11:55 → ICU 12:26
PROVIDERS: Admitting Provider Internal Medicine; Emergency Provider Emergency Medicine; Visit Provider Internal Medicine
DX: E10.10 Type 1 diabetes mellitus with ketoacidosis without coma (principal); D63.8 Anemia in other chronic diseases classified elsewhere; N17.9 Acute kidney failure, unspecified; Z79.4 Long term (current) use of insulin; F17.210 Nicotine dependence, cigarettes, uncomplicated; F17.290 Nicotine dependence, other tobacco product, uncomplicated; F17.220 Nicotine dependence, chewing tobacco, uncomplicated; Z94.0 Kidney transplant status; F43.10 Post-traumatic stress disorder, unspecified; F84.0 Autistic disorder
CPT/HCPCS: 36569; 80048; 80053; 81001; 82009; 82728; 82803; 82962; 83540; 83550; 85025; 93005; 97802; 99284; J7030; J7050; A4216; J2916

== ENCOUNTER 2024-05-11 21:14 | Observation (INO) | payer MEDICAID, SELFPAY ==
[2024-05-11 21:17] VITALS: BP 125/96; PULSE 115; RESP 18; TEMP 37; O2SAT 99; BMI 20.5
[2024-05-11 21:50] LABS: Absolute Lymphocyte Count 2.41 X10^3/uL (0.83-4.51); Absolute Neutrophil Count 4.8 X10^3/uL (2.0-7.7); Basophil# 0.05 X10^3/uL; Basophil% 0.6 % (0-1); Eosinophil# 0.12 X10^3/uL; Eosinophils% 1.5 % (0-5); Hematocrit 36.8 % (40-54); Hemoglobin 10.7 g/dL (13.0-16.5); Lymphocyte # 2.41 X10^3/ul (0.83-4.51); Lymphocyte % 30.7 % (19-41); Mean Corp Hgb Conc 29.1 g/dL (32-36); Mean Corpuscular Hgb 20.3 pg (27.0-32.0); Mean Corpuscular Volume 69.8 fL (80-94); Mean Platelet Vol. 9.3 fl (6.2-12.0); Monocyte# 0.47 X10^3/uL; NRBC Flagged by Analyzer 0 % (0-5); Neutrophil # 4.76 X10^3/uL (2.7-7.7); Neutrophil % 60.7 % (47-70); POSITIVE MORPHOLOGY YES; Platelet Count 525 K/mm3 (150-450); RBC Distribution Width CV 20.2 % (11.6-14.6); RBC Distribution Width SD 45.3 fl (35.1-43.9); Red Blood Count 5.27 M/mm3 (4.6-6.2); White Blood Count 7.9 K/mm3 (4.4-11.0)
[2024-05-11] MEDS: 0.9% Normal Saline (1000mL) 1,000 ML 999 ML IV ×2 (21:52→23:33)
--- NOTE | 2024-05-11 21:52 | ED.RN ---
18 gauge IV started in right AC without ultrasound.
[2024-05-11 21:54] LABS: Differential Indicated SCAN CRITERIA MET
[2024-05-11 22:03] LABS: Bacteria 0 SEEN /hpf (None Seen); Mucous, Urine 0 SEEN /hpf (<or=2+); Red Blood Cells-Urine 0 SEEN /hpf (0-5); White Blood Cells 0 SEEN /hpf (0-5)
[2024-05-11 22:03] LABS: Bedside Glucose > 500 mg/dL (74-106)
[2024-05-11 22:13] LABS: Anisocytosis 1+; Hypochromasia RARE; Microcytosis 1+; Ovalocyte RARE; Platelet Estimate MOD INC (ADEQ); Red Cell Morphology N CHROM NORMAL (NORM C&C); Tear Drop Cell RARE
[2024-05-11 22:22] LABS: ALB/GLOB Ratio 1.1 RATIO (0.9-2.4); AST(SGOT) 9 U/L (15-37); Alanine Aminotransfer ALT/SGPT 21 U/L (16-61); Alkaline Phosphatase 112 U/L (45-117); Anion Gap 10 (5-15); BUN 21 mg/dL (7-18); CPK Total, Creatine Kinase 55 U/L (39-308); Calcium,Total 9.2 mg/dL (8.5-10.1); Chloride 95 mmol/L (98-107); EST Glomerular Filtration Rate 62 mL/min (>60); Est Glom Filt Rate - Afr Amer 75 mL/min (>60); Estimated Creatinine Clearance 70.72 ml/min; Globulin 3.7 g/dL (2.2-4.2); Glucose 777 mg/dL (74-106); Magnesium 2.3 mg/dL (1.6-2.6); Phosphorus 3.5 mg/dL (2.5-4.9); Potassium 4.2 mmol/L (3.5-5.1); Protein, Total 7.7 g/dL (6.4-8.2); Sodium Level 128 mmol/L (136-145)
--- NOTE | 2024-05-11 22:30 | EX.ED.DYSGE1 ---
HPI History of Present Illness Chief Complaint: Hyperglycemia Informant: patient Narrative Narrative: Patient is a 24-year-old male with history of autism, PTSD, type 2 diabetes mellitus and renal transplant presenting with feeling shaky, sore legs and labile blood sugars. Patient was most recently discharged from our ICU for DKA on 05/05 (6 days ago). Patient states that he was getting low blood sugars while taking his Humalog and Lantus so he is only been taking his 35 units of Lantus twice a day and not taking his Humalog. Patient tells me his blood sugar was in the 100 or 200 earlier today. He states he has had 2 days of dry mouth and urinary frequency and he thought he might be going back in DKA so he came in. In addition he is concerned about his hemoglobin level since he received an iron transfusion prior to his discharge and states they did not recheck any labs after giving him that. He denies any other complaints at this time. Apparently patient was also kicked out of his sister's house tonight. [facility] Medical History Autism Type 1 diabetes mellitus Home Medications ?Medication ?Instructions ?Recorded ?Last Taken ?Type mycophenolate mofetil 250 mg 1,000 mg (4 x 250 mg) PO BID #240 04/30/24 Unknown Rx capsule caps pen needle, diabetic 31 gauge x #100 ea 04/30/24 Unknown Rx 1/4 (Pen Needle) tacrolimus 1 mg capsule, 2 mg (2 x 1 mg) PO BID #120 caps 04/30/24 Unknown Rx immediate-release trazodone 100 mg tablet 200 mg (2 x 100 mg) PO QHS #60 tabs 04/30/24 Unknown Rx insulin glargine-yfgn 100 unit/mL 35 unit (0.35 mL) subcut 05/05/24 Unknown Rx (3 mL) subcutaneous pen BID@0800,2000 #0 mL insulin lispro 100 unit/mL 15 unit (0.15 mL) subcut TIDAC #0 05/05/24 Unknown Rx subcutaneous pen (Humalog KwikPen mL (U-100) Insulin) lurasidone 40 mg tablet (Latuda) 80 mg PO QHS 05/11/24 Unknown History Allergy/AdvReac Type Severity Reaction Status Date / Time adhesive tape (tape) Allergy Rash Verified 05/11/24 21:15 ibuprofen Allergy PT UNABLE Verified 05/11/24 21:15 TO RESPOND-NEEDS F/U nitrofurantoin Allergy Rash Verified 05/11/24 21:15 Social History Smoking Status: Current every day smoker tobacco type: cigarettes, e-cigarettes and smokeless tobacco ROS ROS ED Constitutional Constitutional ED: Denies chills or fever(s) Eyes Eyes: Denies change in vision Cardiovascular Cardiovascular: Denies chest pain Respiratory/Chest Respiratory/Chest: Denies cough Gastrointestinal Gastrointestinal: Denies abdominal pain, nausea or vomiting Musculoskeletal Musculoskeletal: Reports myalgias; Denies arthralgias Integumentary Denies rash Neurologic Neurologic: Denies headache(s) or weakness EXAM Physical Exam Const Vital Signs: 05/11/24 21:17 05/11/24 21:40 05/11/24 23:00 Temperature 98.6 F Temperature Source Temporal Pulse Rate 115 H 99 Respiratory Rate 18 23 H Respiratory Effort Normal Non-Labored Respiratory Pattern Normal Blood Pressure 125/96 H 133/100 H Blood Pressure Mean 105 113 Pulse Ox 99 100 Oxygen Delivery Method Room Air 05/11/24 23:45 Temperature Temperature Source Pulse Rate 83 Respiratory Rate 17 Respiratory Effort Respiratory Pattern Blood Pressure 142/109 H Blood Pressure Mean 120 Pulse Ox 97 Oxygen Delivery Method Positive well nourished and well developed General Appearance ED: well developed HEENT Reports dry mucous membranes Mouth ED: Yes dry mucous membranes Mouth: dry mucous membranes Eyes PERRL Neck supple Chest Wall inspection of chest normal Resp normal respiratory effort and clear to auscultation bilaterally Cardio regular rhythm Rate: tachycardic GI normal to inspection, nondistended, normoactive bowel sounds and non-tender Extremity normal to inspection General Extremety ED: Negative for edema General Extremity: Negative for edema Neuro oriented x3 Sensorium / Orientation: alert Motor Exam: Negative for general weakness Psych mental status grossly normal Skin no rashes or lesions noted and no wounds MDM MDM MDM Narrative Medical decision making narrative: Patient is evaluated for concern of elevated blood glucose, increased thirst and increased urination. Patient is nontoxic-appearing. He is mildly tachycardic upon arrival. He is cooperative at this time. He has elevated blood glucose on his initial [id number] glucose test and ultimately his BMP shows a glucose of 777. His creatinine however is at his baseline at 1.5, his anion gap is 10 and his bicarb is 23 and he has no acetone in his blood. He does not meet criteria for DKA. Patient is given a liter of IV fluid. I did discuss with him discharged home after treating his hyperglycemia at this time as he does not have DKA however he states that he was kicked out of his sister's apartment and does not have access to his medications. He would like admission is he does not want to go back into DKA and also like social work consult as he states he would like to try to somehow get to [place]. Patient does also tell me that because of the stress of his recent living situation with his sister, he has not been taking his medications including his antirejection medications as well as his psychiatric medications. He denies any HI or SI and I do not think he requires an inpatient psychiatric consult at this time. History & Record Review Additional record(s) reviewed:: Prior inpatient record (Multiple recent missions for DKA) Lab Data Attestation: I reviewed the patient's lab results. Labs: Laboratory Results - last 24 hr 05/11/24 05/11/24 05/11/24 21:40 21:43 21:50 WBC 7.9 RBC 5.27 Hgb 10.7 L Hct 36.8 L MCV 69.8 L MCH 20.3 L MCHC 29.1 L RDW Std Deviation 45.3 H RDW Coeff of Aminah 20.2 H Plt Count 525 H MPV 9.3 Immature Gran % (Auto) 0.500 Neut % (Auto) 60.7 Lymph % (Auto) 30.7 [place] % (Auto) 6.0 Eos % (Auto) 1.5 Baso % (Auto) 0.6 Absolute Neuts (auto) 4.8 Absolute Lymphs (auto) 2.41 Nucleated RBC % 0 Platelet Estimate MOD INC RBC Morphology N CHROM Hypochromasia RARE Anisocytosis 1+ Microcytosis 1+ Tear Drop Cells RARE Ovalocytes RARE Sodium 128 L Potassium 4.2 Chloride 95 L Carbon Dioxide 23.0 Anion Gap 10 BUN 21 H Creatinine 1.50 H Estim Creat Clear Calc 70.72 Est GFR (MDRD) Af Amer 75 Est GFR (MDRD) Non-Af 62 BUN/Creatinine Ratio 14.0 Glucose 777 H* Calcium 9.2 Phosphorus 3.5 Magnesium 2.3 Total Bilirubin 0.50 AST 9 L ALT 21 Alkaline Phosphatase 112 Total Creatine Kinase 55 Total Protein 7.7 Albumin 4.0 Globulin 3.7 Albumin/Globulin Ratio 1.1 Urine Color Yellow Urine Clarity Sl. Cloudy Urine pH 6.5 Ur Specific [place] 1.005 Urine Protein 30 H Urine Glucose (UA) 1000 H Urine Ketones Negative Urine Occult Blood Negative Urine Nitrite Negative Urine Bilirubin Negative Urine Urobilinogen Normal Ur Leukocyte Esterase Negative Urine RBC 0 SEEN Urine WBC 0 SEEN Ur Squamous Epith Cells 0-5 SEEN Amorphous Sediment 1+ URATE Urine Bacteria 0 SEEN Urine Mucus 0 SEEN Acetone Level NEGATIVE POC Glucose > 500 H* 05/11/24 05/11/24 23:01 23:38 WBC RBC Hgb Hct MCV MCH MCHC RDW Std Deviation RDW Coeff of Aminah Plt Count MPV Immature Gran % (Auto) Neut % (Auto) Lymph % (Auto) [place] % (Auto) Eos % (Auto) Baso % (Auto) Absolute Neuts (auto) Absolute Lymphs (auto) Nucleated RBC % Platelet Estimate RBC Morphology Hypochromasia Anisocytosis Microcytosis Tear Drop Cells Ovalocytes Sodium Cancelled Potassium Cancelled Chloride Cancelled Carbon Dioxide Cancelled Anion Gap Cancelled BUN Cancelled Creatinine Cancelled Estim Creat Clear Calc Cancelled Est GFR (MDRD) Af Amer Cancelled Est GFR (MDRD) Non-Af Cancelled BUN/Creatinine Ratio Cancelled Glucose Cancelled Calcium Cancelled Phosphorus Magnesium Total Bilirubin AST ALT Alkaline Phosphatase Total Creatine Kinase Total Protein Albumin Globulin Albumin/Globulin Ratio Urine Color Urine Clarity Urine pH Ur Specific [place] Urine Protein Urine Glucose (UA) Urine Ketones Urine Occult Blood Urine Nitrite Urine Bilirubin Urine Urobilinogen Ur Leukocyte Esterase Urine RBC Urine WBC Ur Squamous Epith Cells Amorphous Sediment Urine Bacteria Urine Mucus Acetone Level POC Glucose > 500 H* Management Discussion w/another healthcare provider: Hospitalist (Dr. Alejo) Discharge Plan Triage Chief Complaint: Hyperglycemia ED Provider: Rhona Lawler Dx/Rx/DC Orders Clinical Impression: Hyperglycemia, Type 1 diabetes mellitus, Noncompliance with medication regimen Primary Care Provider: Care Physician,No Primary Disposition Disposition: Acute Care [facility]
[2024-05-11 22:35] LABS: Color, Urine Yellow (Yellow); Glucose, Dipstick 1000 mg/dl (Normal); Ketone-Dipstick Negative (Negative); Leukocyte Esterase-Dipstick Negative /ul (Negative); Nitrite-Dipstick Negative (Negative); Occult Blood-Urine Negative /ul (Negative); Protein-Dipstick 30 mg/dl (Negative); Specific Gravity, Urine 1.005 (1.002-1.030); Urine Bilirubin Dipstick Negative (Negative); Urine Clarity Sl. Cloudy (Clear); Urine Urobilinogen Normal (Normal); Urine pH 6.5 (5.0 - 8.0)
[2024-05-11 22:46] LABS: Amorphous Sediment 1+ URATE; Squamous Epithelial Cells - UA 0-5 SEEN /hpf (0-5)
[2024-05-11 23:00] VITALS: BP 133/100; PULSE 99; RESP 23; O2SAT 100
[2024-05-11 23:19] LABS: Bedside Glucose > 500 mg/dL (74-106)
[2024-05-11] MEDS: Insulin Lispro 100 UNIT/ML INSULN.PEN 20 UNIT SC (23:32)
[2024-05-11 23:45] VITALS: BP 142/109; PULSE 83; RESP 17; O2SAT 97
--- NOTE | 2024-05-11 23:56 | HP.PCM.HOS_ITS ---
[facility] - General General Date of Admission: 05/12/24 Date of Service: 05/11/24 Chief Complaint: Hyperglycemia and Not Taking his Medications. [facility] Narrative CROW HERBERT, is a 24 M with a past medical history of tobacco abuse, diabetes mellitus type 1; uncontrolled with hyperglycemia, history of renal transplant; on mycophenolate and tacrolimus, medical noncompliance; with recent admission here for DKA from May 04, 2024 to May 05, 2024, chronic iron deficiency anemia; with recent iron transfusion, autism and PTSD who presents to [facility] ER complaining of hyperglycemia. Mr. Herbert reports his symptoms began approximately 2 days prior to admission when he stopped taking his medications as prescribed with a gradual onset of progressively worsening generalized shakiness, sore legs and elevated blood glucose with increasing urinary frequency. He informed the ER physician he had been taking his Lantus 35 units twice daily but not his Humalog and that his blood sugar was approximately 200 mg/dL earlier in the day on May 11, 2024. He also admits to dry mouth and generalized myalgias but he denies associated fever, chills, nausea, vomiting, diarrhea or constipation. He was apparently kicked out of his sister's house tonight prompting him to come to the ER for further evaluation and treatment. In addition to all this his sister apparently placed his belongings outside in the back of their apartment complex and someone allegedly absconded with all of his medications including his antirejection drugs. In the ER he was noted to have severe hyperglycemia of 777 mg/dL due to medical noncompliance with his insulin regimen with a negative serum acetone and he was then admitted to the general medical floor under observation status for ongoing care for status expected to be less than 2 midnights. [facility] Medical History Autism Type 1 diabetes mellitus Home Medications ?Medication ?Instructions ?Recorded ?Last Taken ?Type mycophenolate mofetil 250 mg 1,000 mg (4 x 250 mg) PO BID #240 04/30/24 Unknown Rx capsule caps pen needle, diabetic 31 gauge x #100 ea 04/30/24 Unknown Rx 1/4 (Pen Needle) tacrolimus 1 mg capsule, 2 mg (2 x 1 mg) PO BID #120 caps 04/30/24 Unknown Rx immediate-release trazodone 100 mg tablet 200 mg (2 x 100 mg) PO QHS #60 tabs 04/30/24 Unknown Rx insulin glargine-yfgn 100 unit/mL 35 unit (0.35 mL) subcut 05/05/24 Unknown Rx (3 mL) subcutaneous pen BID@0800,2000 #0 mL insulin lispro 100 unit/mL 15 unit (0.15 mL) subcut TIDAC #0 05/05/24 Unknown Rx subcutaneous pen (Humalog KwikPen mL (U-100) Insulin) lurasidone 40 mg tablet (Latuda) 80 mg PO QHS 05/11/24 Unknown History Allergy/AdvReac Type Severity Reaction Status Date / Time adhesive tape (tape) Allergy Rash Verified 05/11/24 21:15 ibuprofen Allergy PT UNABLE Verified 05/11/24 21:15 TO RESPOND-NEEDS F/U nitrofurantoin Allergy Rash Verified 05/11/24 21:15 Social History Smoking Status: Current every day smoker tobacco type: cigarettes, e-cigarettes and smokeless tobacco ROS ROS Narrative Review of systems: General: Patient denies fever or chills. HENT: Denies headache, denies stuffy nose, denies sore throat EYES: Denies changes in vision or discharge from eyes. Resp: Denies cough, denies shortness of breath Cardiac: Denies chest pain, palpitations or heart racing. GI: Denies abdominal pain, denies changes in bowel, denies nausea or vomiting. : Patient admits to frequent urination but he denies dysuria. Extremity: Denies swelling Musculoskeletal: Feels somewhat generally weak and unwell with myalgias but he denies arthralgias. Neuro: Patient denies headache, paresthesias or focal neurologic deficits. Heme: Denies any bleeding or bruising Skin: Denies rashes Psychiatric: No complaints voiced related to uncontrolled depression or anxiety. Endocrine: Patient admits to polyuria and polydipsia but he denies polyphagia. The rest of the 14 point ROS was negative except for positives in HPI. Vital Signs Vital Signs Vital Signs: 05/11/24 21:17 05/11/24 21:40 Temperature 98.6 F Temperature Source Temporal Pulse Rate 115 H Respiratory Rate 18 Respiratory Effort Normal Non-Labored Respiratory Pattern Normal Blood Pressure 125/96 H Blood Pressure Mean 105 Pulse Ox 99 Oxygen Delivery Method Room Air Weight Weight: 142 lb 11.2 oz Body Mass Index (BMI) 20.5 Physical Exam Const alert, oriented x3, no apparent distress, average body habitus and healthy appearing Constitutional Narrative: Patient has brownish discoloration of teeth. General Appearance: cooperative HEENT normocephalic, head/scalp atraumatic, hearing grossly normal bilaterally and moist oral mucous membranes Eyes PERRL and EOMs intact bilaterally Neck no lymphadenopathy and supple Resp normal respiratory effort, no retractions, no use of accessory muscles and clear to auscultation bilaterally Cardio regular rate and regular rhythm GI normal to inspection, nondistended, normoactive bowel sounds, soft to palpation, non-tender and non-distended Extremity normal to inspection and full ROM Skin Skin Narrative: Patient has no evidence of abscess, jaundice or rash. Neuro oriented x3, CN's II-XII intact bilaterally, moves all extremities and no focal motor deficits Sensorium / Orientation: awake, alert, oriented to person, oriented to place and oriented to time Speech: speech normal Psych affect normal Results Medical Records Data Attestation: I reviewed the patient's medical records Lab / Micro Data Attestation: I reviewed the patient's lab results. 05/11/24 21:40 05/11/24 21:40 Labs: Laboratory Results - last 24 hr 05/11/24 21:40: WBC 7.9, RBC 5.27, Hgb 10.7 L, Hct 36.8 L, MCV 69.8 L, MCH 20.3 L, MCHC 29.1 L, RDW Std Deviation 45.3 H, RDW Coeff of Aminah 20.2 H, Plt Count 525 H, MPV 9.3, Immature Gran % (Auto) 0.500, Neut % (Auto) 60.7, Lymph % (Auto) 30.7, [place] % (Auto) 6.0, Eos % (Auto) 1.5, Baso % (Auto) 0.6, Absolute Neuts (auto) 4.8, Absolute Lymphs (auto) 2.41, Nucleated RBC % 0, Platelet Estimate MOD INC, RBC Morphology N CHROM, Hypochromasia RARE, Anisocytosis 1+, Microcytosis 1+, Tear Drop Cells RARE, Ovalocytes RARE, Sodium 128 L, Potassium 4.2, Chloride 95 L, Carbon Dioxide 23.0, Anion Gap 10, BUN 21 H, Creatinine 1.50 H, Estim Creat Clear Calc 70.72, Est GFR (MDRD) Af Amer 75, Est GFR (MDRD) Non- Af 62, BUN/Creatinine Ratio 14.0, Glucose 777 H*, Calcium 9.2, Phosphorus 3.5, Magnesium 2.3, Total Bilirubin 0.50, AST 9 L, ALT 21, Alkaline Phosphatase 112, Total Creatine Kinase 55, Total Protein 7.7, Albumin 4.0, Globulin 3.7, Albumin/Globulin Ratio 1.1, Acetone Level NEGATIVE 05/11/24 21:43: POC Glucose > 500 H* 05/11/24 21:50: Urine Color Yellow, Urine Clarity Sl. Cloudy, Urine pH 6.5, Ur Specific [place] 1.005, Urine Protein 30 H, Urine Glucose (UA) 1000 H, Urine Ketones Negative, Urine Occult Blood Negative, Urine Nitrite Negative, Urine Bilirubin Negative, Urine Urobilinogen Normal, Ur Leukocyte Esterase Negative, Urine RBC 0 SEEN, Urine WBC 0 SEEN, Ur Squamous Epith Cells 0-5 SEEN, Amorphous Sediment 1+ URATE, Urine Bacteria 0 SEEN, Urine Mucus 0 SEEN 05/11/24 23:01: POC Glucose > 500 H* 05/11/24 23:38: Sodium Cancelled, Potassium Cancelled, Chloride Cancelled, Carbon Dioxide Cancelled, Anion Gap Cancelled, BUN Cancelled, Creatinine Cancelled, Estim Creat Clear Calc Cancelled, Est GFR (MDRD) Af Amer Cancelled, Est GFR (MDRD) Non-Af Cancelled, BUN/Creatinine Ratio Cancelled, Glucose Cancelled, Calcium Cancelled Assessment & Plan Assessment/Plan (1) Hyperglycemia: (2) Noncompliance with medication regimen: (3) Type 1 diabetes mellitus: QUALIFIERS: Diabetes mellitus complication status: without complication Qualified Code(s): E10.9 - Type 1 diabetes mellitus without complications (4) History of renal transplant: (5) Iron deficiency anemia: QUALIFIERS: Iron deficiency anemia type: unspecified iron deficiency Qualified Code(s): D50.9 - Iron deficiency anemia, unspecified (6) Tobacco abuse: (7) PTSD (post-traumatic stress disorder): (8) Autism: PLAN: Plan 1. Severe hyperglycemia of 777 mg/dL present on admission in the setting of known diabetes mellitus type 1; uncontrolled with hyperglycemia due to chronic medical noncompliance - Admit to general medical floor under observation status. Patient given long-acting and short acting insulin plus volume resuscitation. Patient was encouraged to take his insulin as prescribed to prevent further serial readmission. 2. Recent admission here for DKA from May 04, 2024 to May 05, 2024 - Noted. 3. History of renal transplant; on mycophenolate and tacrolimus - Resume mycophenolate and tacrolimus as previous. 4. Chronic iron deficiency anemia; with recent iron transfusion - Stable with hemoglobin of 10.7 g/dL present on admission. 5. Tobacco abuse - Tobacco cessation will be strongly encouraged with nicotine patch offered to control cravings. 6. History of autism and PTSD - Stable at this time patient to continue home medications as previous. 7. DVT prophylaxis - Lovenox 40 mg subcu daily. Total time: Approximately 70 minutes. Charges/Coding Visit Charges OBSV E&M: 87092 Observ/hosp same date L2
[2024-05-12] MEDS: Insulin Glargine-YFGN 100 UNIT/ML Pen 35 UNIT SC ×2 (00:29→08:52)
--- NOTE | 2024-05-12 00:35 | ED.RN ---
Pt states his iv hurts because it's in the ac and he has to bend his arm to text message. Pt also states that he's a hard stick and last time he needed a picc line. This RN told pt that it was a good iv without any s/s infiltration and considering his statement that he's a hard stick that it's best that he just refrain from texting or use other hand. Pt refuses, will not allow this RN to connect fluids after using restroom. Pt also unwilling to keep arm straight for fluids to run.
[2024-05-12 00:40] LABS: Bedside Glucose > 500 mg/dL (74-106)
[2024-05-12 00:48] VITALS: BP 129/104; PULSE 75; RESP 16; TEMP 36.8; O2SAT 98
[2024-05-12 01:00] VITALS: BP 129/104; PULSE 70; RESP 21; O2SAT 98
--- NOTE | 2024-05-12 01:02 | ED.RN ---
Attempted to restart fluids, pt. refused d/t wanting to text and use right arm. Unable to use left arm d/t fistula. Pt. wants new IV started, but hard stick; educated on importance of fluids and difficulty of starting a new IV. Pt. refused fluid administration restart and charge nurse is updated.
[2024-05-12 02:05] VITALS: BP 112/86; PULSE 81; RESP 18; TEMP 36.7; O2SAT 96
[2024-05-12 02:09] VITALS: BMI 20.3
[2024-05-12 03:13] VITALS: BMI 20.3
[2024-05-12 06:31] LABS: Absolute Lymphocyte Count 2.28 X10^3/uL (0.83-4.51); Absolute Neutrophil Count 3.5 X10^3/uL (2.0-7.7); Basophil# 0.06 X10^3/uL; Basophil% 0.9 % (0-1); Eosinophil# 0.12 X10^3/uL; Eosinophils% 1.9 % (0-5); Hematocrit 34.6 % (40-54); Hemoglobin 10.1 g/dL (13.0-16.5); Lymphocyte # 2.28 X10^3/ul (0.83-4.51); Lymphocyte % 35.3 % (19-41); Mean Corp Hgb Conc 29.2 g/dL (32-36); Mean Corpuscular Hgb 20.5 pg (27.0-32.0); Mean Corpuscular Volume 70.3 fL (80-94); Mean Platelet Vol. 9.6 fl (6.2-12.0); Monocyte# 0.47 X10^3/uL; Monocyte% 7.3 % (0-10); NRBC Flagged by Analyzer 0 % (0-5); Neutrophil # 3.48 X10^3/uL (2.7-7.7); POSITIVE MORPHOLOGY YES; Platelet Count 452 K/mm3 (150-450); RBC Distribution Width CV 20.1 % (11.6-14.6); RBC Distribution Width SD 46.1 fl (35.1-43.9); Red Blood Count 4.92 M/mm3 (4.6-6.2); White Blood Count 6.5 K/mm3 (4.4-11.0)
[2024-05-12 06:38] LABS: Differential Indicated SCAN CRITERIA MET
--- NOTE | 2024-05-12 06:42 | NURSING ---
pt refused assessment
[2024-05-12 07:12] LABS: ALB/GLOB Ratio 0.9 RATIO (0.9-2.4); AST(SGOT) 10 U/L (15-37); Alanine Aminotransfer ALT/SGPT 16 U/L (16-61); Albumin, Serum 3.5 g/dL (3.2-5.0); Alkaline Phosphatase 102 U/L (45-117); Anion Gap 8 (5-15); BUN 16 mg/dL (7-18); Chloride 104 mmol/L (98-107); Creatinine, Serum 1.14 mg/dL (0.70-1.30); EST Glomerular Filtration Rate 85 mL/min (>60); Est Glom Filt Rate - Afr Amer 103 mL/min (>60); Estimated Creatinine Clearance 92.58 ml/min; Globulin 3.7 g/dL (2.2-4.2); Glucose 275 mg/dL (74-106); Phosphorus 2.8 mg/dL (2.5-4.9); Potassium 3.9 mmol/L (3.5-5.1); Protein, Total 7.2 g/dL (6.4-8.2); Sodium Level 136 mmol/L (136-145)
[2024-05-12] MEDS: Insulin Lispro 100 UNIT/ML INSULN.PEN 15 UNIT SC (08:51)
[2024-05-12 09:00] VITALS: BP 109/84; PULSE 77; RESP 16; TEMP 36.4; O2SAT 100
[2024-05-12 09:36] LABS: Bedside Glucose 185 mg/dL (74-106)
[2024-05-12 09:49] LABS: Anisocytosis 2+; Differential Comment SCANNED
[2024-05-12 09:52] LABS: Polychromasia RARE
[2024-05-12 09:53] LABS: Microcytosis 1+
[2024-05-12] MEDS: Glucerna Shake 120 ML LIQUID PO ×3 (10:44→16:23)
[2024-05-12] MEDS: Tacrolimus Anhydrous 1 MG Capsule 2 MG PO ×2 (10:45→22:02)
[2024-05-12] MEDS: Mycophenolate Mofetil 250 MG Capsule 1000 MG PO (10:47)
[2024-05-12 10:57] LABS: Bedside Glucose 37 mg/dL (74-106)
[2024-05-12 11:29] LABS: Bedside Glucose 90 mg/dL (74-106)
--- NOTE | 2024-05-12 11:50 | PCM.PN.HOSP ---
Reason for Visit Reason for Visit: Diagnoses Iron deficiency anemia, unspecified (05/12/24) Type 1 diabetes mellitus without complications (05/12/24) Post-traumatic stress disorder, unspecified (05/12/24) Autistic disorder (05/12/24) Hyperglycemia, unspecified (05/12/24) Tobacco use (05/12/24) Patient's other noncompliance with medication regimen for other reason (05/12/24) Kidney transplant status (05/12/24) Subjective Subjective Patient irritable about his present living situation, additionally reports he was eating a lot of food at home because his glargine was making his glucose dropped too low and he was not taking his lispro, patient initially significantly hyperglycemic then became hypoglycemic when given home medications and was briefly symptomatic, feeling better after having several snacks Objective Data Objective Data Vital Signs: Vital Signs Temp Pulse Resp BP Pulse Ox O2 Del Method 97.6 F L 77 16 109/84 H 100 Room Air 05/12/24 09:00 05/12/24 09:00 05/12/24 09:00 05/12/24 09:00 05/12/24 09:00 05/12/24 09:00 Oxygen Delivery Method Room Air Weight: 64.4 kg Body Mass Index (BMI) 20.3 Intake & Output: Intake and Output for Last 24 Hours 05/10/24 05/11/24 05/12/24 23:59 23:59 23:59 Intake Total 1000 / 1000 616.05 / 616.05 Balance 1000 / 1000 616.05 / 616.05 Lab / Micro Data 05/12/24 05:20 05/12/24 05:20 Labs: Laboratory Results - last 24 hr 05/11/24 21:40: WBC 7.9, RBC 5.27, Hgb 10.7 L, Hct 36.8 L, MCV 69.8 L, MCH 20.3 L, MCHC 29.1 L, RDW Std Deviation 45.3 H, RDW Coeff of Aminah 20.2 H, Plt Count 525 H, MPV 9.3, Immature Gran % (Auto) 0.500, Neut % (Auto) 60.7, Lymph % (Auto) 30.7, [place] % (Auto) 6.0, Eos % (Auto) 1.5, Baso % (Auto) 0.6, Absolute Neuts (auto) 4.8, Absolute Lymphs (auto) 2.41, Nucleated RBC % 0, Platelet Estimate MOD INC, RBC Morphology N CHROM, Hypochromasia RARE, Anisocytosis 1+, Microcytosis 1+, Tear Drop Cells RARE, Ovalocytes RARE, Sodium 128 L, Potassium 4.2, Chloride 95 L, Carbon Dioxide 23.0, Anion Gap 10, BUN 21 H, Creatinine 1.50 H, Estim Creat Clear Calc 70.72, Est GFR (MDRD) Af Amer 75, Est GFR (MDRD) Non-Af 62, BUN/Creatinine Ratio 14.0, Glucose 777 H*, Calcium 9.2, Phosphorus 3.5, Magnesium 2.3, Total Bilirubin 0.50, AST 9 L, ALT 21, Alkaline Phosphatase 112, Total Creatine Kinase 55, Total Protein 7.7, Albumin 4.0, Globulin 3.7, Albumin/Globulin Ratio 1.1, Acetone Level NEGATIVE 05/11/24 21:43: POC Glucose > 500 H* 05/11/24 21:50: Urine Color Yellow, Urine Clarity Sl. Cloudy, Urine pH 6.5, Ur Specific [place] 1.005, Urine Protein 30 H, Urine Glucose (UA) 1000 H, Urine Ketones Negative, Urine Occult Blood Negative, Urine Nitrite Negative, Urine Bilirubin Negative, Urine Urobilinogen Normal, Ur Leukocyte Esterase Negative, Urine RBC 0 SEEN, Urine WBC 0 SEEN, Ur Squamous Epith Cells 0-5 SEEN, Amorphous Sediment 1+ URATE, Urine Bacteria 0 SEEN, Urine Mucus 0 SEEN 05/11/24 23:01: POC Glucose > 500 H* 05/11/24 23:38: Sodium Cancelled, Potassium Cancelled, Chloride Cancelled, Carbon Dioxide Cancelled, Anion Gap Cancelled, BUN Cancelled, Creatinine Cancelled, Estim Creat Clear Calc Cancelled, Est GFR (MDRD) Af Amer Cancelled, Est GFR (MDRD) Non-Af Cancelled, BUN/Creatinine Ratio Cancelled, Glucose Cancelled, Calcium Cancelled 05/12/24 00:22: POC Glucose > 500 H* 05/12/24 05:20: WBC 6.5, RBC 4.92, Hgb 10.1 L, Hct 34.6 L, MCV 70.3 L, MCH 20.5 L, MCHC 29.2 L, RDW Std Deviation 46.1 H, RDW Coeff of Aminah 20.1 H, Plt Count 452 H, MPV 9.6, Immature Gran % (Auto) 0.600, Neut % (Auto) 54.0, Lymph % (Auto) 35.3, [place] % (Auto) 7.3, Eos % (Auto) 1.9, Baso % (Auto) 0.9, Absolute Neuts (auto) 3.5, Absolute Lymphs (auto) 2.28, Nucleated RBC % 0, Differential Comment SCANNED, Polychromasia RARE, Anisocytosis 2+, Microcytosis 1+, Sodium 136, Potassium 3.9, Chloride 104, Carbon Dioxide 24.0, Anion Gap 8, BUN 16, Creatinine 1.14, Estim Creat Clear Calc 92.58, Est GFR (MDRD) Af Amer 103, Est GFR (MDRD) Non-Af 85, BUN/Creatinine Ratio 14.0, Glucose 275 H, Calcium 9.0, Phosphorus 2.8, Total Bilirubin 0.60, AST 10 L, ALT 16, Alkaline Phosphatase 102, Total Protein 7.2, Albumin 3.5, Globulin 3.7, Albumin/Globulin Ratio 0.9 05/12/24 08:46: POC Glucose 185 H 05/12/24 10:38: POC Glucose 37 L* 05/12/24 11:11: POC Glucose 90 Physical Exam Narrative General: Alert, oriented, no apparent distress HEENT: Atraumatic, normocephalic Eyes: Anicteric, normal conjunctiva, extraocular movements grossly intact Neck: Supple Respiratory: Clear to auscultation bilaterally, normal respiratory effort Cardiovascular: Regular rate and rhythm GI: Soft, nontender, nondistended Extremities: No edema Musculoskeletal: Moving all extremities Neuro: No overt focal neurological deficits Skin: No rashes appreciated Psych: Overall cooperative at this time Assessment & Plan Assessment/Plan (1) Hyperglycemia: (2) Type 1 diabetes mellitus: QUALIFIERS: Diabetes mellitus complication status: without complication Qualified Code(s): E10.9 - Type 1 diabetes mellitus without complications (3) PTSD (post-traumatic stress disorder): (4) Tobacco abuse: (5) History of renal transplant: PLAN: Plan #Hyperglycemia/DMI/subsequent hypoglycemia -Not in DKA -Medication compliance difficulty -Pt reports eating whatever he wants and that glucose drops when he is restricted, pt adamant about regular diet -Orders adjusted -Also adjusted insulin as pt not only dropping here but at home as well -Glucose checks/close monitoring #Hx renal transplant/elevated creatinine -Continue home medications -Monitor kidney fxn -Tacrolimus lvl -Creatinine improving, patient did request IV taken out so not receiving IV fluids anymore but maintaining p.o. at this time #Tobacco use -Advise cessation -Nicotine replacement available if desired # Autism/PTSD -Continue home meds -Patient intermittently not cooperative but discussed at length and patient presently being compliant # Recovering substance and alcohol addiction -Denies any recent substance use for over 2 months, supportive care # Difficult social situation -Case management and social work tomorrow -Discussed that there are limitations of what can be offered and patient verbalized understanding #DVT ppx: Lovenox subcu Bren Parsons MD Time spent in the patient's overall evaluation,decision-making process, review of diagnostic data, adjustment of management, discussion with other providers, nursing nursing and ancillary staff involved in patient's care documentation, 37 minutes Charges/Coding Visit Charges Inpatient E&M: 31391 Subs Hosp L2
[2024-05-12 14:25] VITALS: BP 117/89; PULSE 92; RESP 16; TEMP 36.6; O2SAT 100
[2024-05-12 14:52] LABS: Bedside Glucose 232 mg/dL (74-106)
[2024-05-12] MEDS: Insulin Lispro 100 UNIT/ML INSULN.PEN SC (16:20)
[2024-05-12 16:38] LABS: Bedside Glucose 318 mg/dL (74-106)
--- NOTE | 2024-05-12 21:42 | NURSING ---
pt cussing at rn refused bp, assessment, pt saw his accucheck was 533 states that eric orozco decreased my insulin asked pt if he wanted his hs meds states he wants to talk to the charge nurse, notified journeyman pipefitter who notified hospitialist
--- NOTE | 2024-05-12 21:56 | NURSING ---
refused lab back up
[2024-05-12 21:58] LABS: Bedside Glucose > 500 mg/dL (74-106)
[2024-05-12] MEDS: Insulin Glargine-YFGN 100 UNIT/ML Pen 27 UNIT SC (22:00)
[2024-05-12] MEDS: traZODone 100 MG Tablet 200 MG PO (22:00)
[2024-05-12] MEDS: Mycophenolate Mofetil 250 MG Capsule 500 MG PO (22:00)
[2024-05-12] MEDS: LURASIDONE HCL 40 MG TABLET 80 MG PO (22:01)
--- NOTE | 2024-05-12 22:08 | NURSING ---
pt mood euphoric and apologetic now, took his hs meds and insulin, but wont consent to assessment or vs. states his sister miraculously found his back pack with his insulin pens, pt with pressured speech and flight of ideas. rn and handbag parts cutter in room and pt given hs snack, dinner tray removed, warm blanket given. pt denies further needs
--- NOTE | 2024-05-12 23:29 | NURSING ---
credit review manager reports she rounded on pt to see if he had any needs and he gave credit review manager the middle finger
--- NOTE | 2024-05-13 06:15 | NURSING ---
refused am lab draw, vs, assessment
--- NOTE | 2024-05-13 06:45 | NURSING ---
Lab ladevelin said patient told her to don't touch his things and he is refusing his morning lab draw.
[2024-05-13] MEDS: Insulin Glargine-YFGN 100 UNIT/ML Pen 30 UNIT SC (08:28)
[2024-05-13] MEDS: Mycophenolate Mofetil 250 MG Capsule 500 MG PO ×2 (08:32→20:55)
[2024-05-13] MEDS: Tacrolimus Anhydrous 1 MG Capsule 2 MG PO ×2 (08:33→20:54)
[2024-05-13] MEDS: Glucerna Shake 120 ML LIQUID PO ×3 (08:36→16:54)
[2024-05-13 08:45] VITALS: BP 114/86; PULSE 88; RESP 18; O2SAT 99
[2024-05-13 11:40] LABS: Bedside Glucose 87 mg/dL (74-106)
[2024-05-13] MEDS: Insulin Lispro 100 UNIT/ML INSULN.PEN SC (11:58)
[2024-05-13 12:17] LABS: Bedside Glucose 262 mg/dL (74-106)
--- NOTE | 2024-05-13 12:25 | CASEMGMT ---
JOSELUIS FORREST into pt room with SW, pt sitting up in chair in no distress. Pt reports his sister who biologically is not his sister found his meds after the police became involved yesterday. He states upon dc the police will give take him to his sister's apt to obtain his medications. Pt then discussed his requests for drug/alcohol treatment with a facility in [place] that he has been in contact with with the SW. Pt also discussed his past experiences with shelters in [place] and family dynamics. See LOUISE note. JOSELUIS FORREST to continue to follow pt pending dc plan to another facility.
[2024-05-13 14:11] LABS: Bedside Glucose 279 mg/dL (74-106)
--- NOTE | 2024-05-13 14:26 | PN.HOSP_ITS ---
Reason for Visit Reason for Visit: Diagnoses Iron deficiency anemia, unspecified (05/12/24) Type 1 diabetes mellitus without complications (05/12/24) Post-traumatic stress disorder, unspecified (05/12/24) Autistic disorder (05/12/24) Hyperglycemia, unspecified (05/12/24) Tobacco use (05/12/24) Patient's other noncompliance with medication regimen for other reason (05/12/24) Kidney transplant status (05/12/24) Subjective Subjective Patient still with variable blood sugars, also reports no vertigo and he knows if he is discharged he will begin using substances again Objective Data Objective Data Vital Signs: Vital Signs Temp Pulse Resp BP Pulse Ox O2 Del Method 97.8 F 88 18 114/86 H 99 Room Air 05/12/24 14:25 05/13/24 08:45 05/13/24 08:45 05/13/24 08:45 05/13/24 08:45 05/13/24 08:45 Oxygen Delivery Method Room Air Weight: 64.4 kg Body Mass Index (BMI) 20.3 Intake & Output: Intake and Output for Last 24 Hours 05/11/24 05/12/24 05/13/24 23:59 23:59 23:59 Intake Total 1000 / 1000 616.05 / 616.05 Balance 1000 / 1000 616.05 / 616.05 Lab / Micro Data 05/12/24 05:20 05/12/24 05:20 Labs: Laboratory Results - last 24 hr 05/12/24 14:33: POC Glucose 232 H 05/12/24 16:18: POC Glucose 318 H 05/12/24 21:39: POC Glucose > 500 H* 05/13/24 08:26: POC Glucose 87 05/13/24 11:56: POC Glucose 262 H 05/13/24 13:54: POC Glucose 279 H Physical Exam Narrative General: Alert, oriented, no apparent distress HEENT: Atraumatic, normocephalic Eyes: Anicteric, normal conjunctiva, extraocular movements grossly intact Neck: Supple Respiratory: Clear to auscultation bilaterally, normal respiratory effort Cardiovascular: Regular rate and rhythm GI: Soft, nontender, nondistended Extremities: No edema Musculoskeletal: Moving all extremities Neuro: No overt focal neurological deficits Skin: No rashes appreciated Psych: Overall cooperative at this time, no flight of ideas, no distractibility Assessment & Plan Assessment/Plan (1) Hyperglycemia: (2) Type 1 diabetes mellitus: QUALIFIERS: Diabetes mellitus complication status: without complication Qualified Code(s): E10.9 - Type 1 diabetes mellitus without complications (3) PTSD (post-traumatic stress disorder): (4) Tobacco abuse: (5) History of renal transplant: PLAN: Plan #Hyperglycemia/DMI/subsequent hypoglycemia -Not in DKA -Medication compliance difficulty -Pt reports eating whatever he wants and that glucose drops when he is restricted, pt adamant about regular diet -Orders adjusted -Also adjusted insulin as pt not only dropping here but at home as well -Glucose checks/close monitoring -05/13: Still quite variable but patient eating more consistently now, we will continue to adjust insulin #Hx renal transplant/elevated creatinine -Continue home medications -Monitor kidney fxn -Tacrolimus lvl -Creatinine improving, patient did request IV taken out so not receiving IV fluids anymore but maintaining p.o. at this time -05/13: Patient refused a.m. lab draws but he is eating and drinking well now and glucose is improved #Tobacco use -Advise cessation -Nicotine replacement available if desired -05/13: Given nicotine gum # Autism/PTSD -Continue home meds -Patient intermittently not cooperative but discussed at length and patient presently being compliant -05/13: Patient continued on his home medications, reports he slept a lot last night, wants to see a psychiatrist, discussed lack of inpatient psychiatric consultation here and advised outpatient follow-up. At this time patient cooperative, no flight of ideas, not distractible, patient acting appropriate. Suspect his excitability and distractibility are more based in personality than they are in active mood disorder and do not feel he needs inpatient psychiatric treatment at this time # Recovering substance and alcohol addiction -Denies any recent substance use for over 2 months, supportive care -05/13: Patient presently homeless, used multiple substances previously and reports if he is discharged to the street he will begin using again. Social work and case management presently working with patient, patient hopes to get into a rehab in [place], this is being explored # Difficult social situation -Case management and social work tomorrow -Discussed that there are limitations of what can be offered and patient verbalized understanding -05/13: Patient to get assistance with signing up for [place] insurance, presently homeless and given his multiple medical comorbidities and variable glucose feel it is reasonable to keep him tonight while trying to get him into the rehab in [place] #DVT ppx: Lovenox subcu Bren Parsons MD Time spent in the patient's overall evaluation,decision-making process, review of diagnostic data, adjustment of management, discussion with other providers, nursing nursing and ancillary staff involved in patient's care documentation, 37 minutes Charges/Coding Visit Charges Inpatient E&M: 25566 Subs Hosp L2
--- NOTE | 2024-05-13 15:13 | CASEMGMT ---
Social Work SW and CM met w/pt in regard to discharge plan. PCP: None Specialists: Pt states needs a kidney doctor and an finish repair worker. Insurance; Pt has [employer] Medicaid in [place]. Interested in applying for Medicaid in [place]. SW called Veronica from [facility], she will come up to see pt. LNOK/living arrangements: Pt's mother is in [place], his father is also. He does not speak w/his father. Pt states has an exwife and a four year old child, also states he has a girlfriend and a fiance, both out of state. Pt did speak w/his mother yesterday. He states cannot live w/her however due to his history of drug use and mental illness. Pt moved up here from [place] to live with his sister Liberty. (Pt states [facility] bought him a bus ticket to get him here). He clarified she is not a sister, but a friend he met on the streets in [place] who now lives here. He states she encouraged him to move up here to help him, and then she kicked him out. He states he was homeless in [place] for 5 1/2 years before living here. Pt states his sister has his medications, and he will get them back from her when he is discharged. He states he spoke w/the police twice yesterday, they offered to drive him to her house when discharged to get his meds, and he states will return her phone when he gets his medication back. SNF/HHC/SNF: No history of any Plan: We spoke about where pt can go from here. SW explained the only snf in the area is [facility]. Pt states he will not go to [facility], as he was in one in [place], [place], and they did not care about him or help him. Pt states he has been in touch with a rehab facility called [facility], they are in [place]. He called and was told that they take his insurance and they would be able to take him. Pt states he drinks and uses meth, relapsed 5 days ago. He states he uses as a coping mechanism. Pt gave SW the phone and fax number to [facility] ( , fax [phone]). Pt states if he cannot go to [facility], asked about going up to [place] so he can get set up w/specialists. SW explained that he would likely not be transferred as he is medically stable. Pt states does not think he is stable, as his blood sugar was 86 this morning and is over 200 this afternoon. SW explained this would be up to the physician, pt states understanding. SW explained will make referral to [facility], and let him know. SW called [facility], spoke w/Judy in admissions. She confirmed spoke w/this pt, they take his insurance, and they will review his information for admission. They provide transportation up to 4 hours away, the facilities in [place] are the closest. SW had pt sign a release and faxed the information over to [facility]. SW will await a response. LOUISE will continue to follow. MANUELA Pierce
--- NOTE | 2024-05-13 16:27 | CASEMGMT ---
Social Work Pt states [facility] does not want to take him as they do not think he is medically stable, he asked if physician can write a note stating he is stable. SW explained will ask physician. He also states worked w/Veronica to start a Medicaid application. He also asked if SW can call about him going to [facility] if [facility] does not work, SW explained that yes, SW can call tomorrow. SW spoke w/physician, she can write a note tomorrow as long as pt's blood sugars are stable. SW let pt know. SW will follow up tomorrow. MANUELA Pierce
[2024-05-13] MEDS: Insulin Lispro 100 UNIT/ML INSULN.PEN 7 UNIT SC (16:49)
[2024-05-13 17:05] VITALS: BP 120/89; PULSE 102; RESP 16; TEMP 36.9; O2SAT 100
[2024-05-13 17:08] LABS: Bedside Glucose 276 mg/dL (74-106)
[2024-05-13 20:48] VITALS: PULSE 89
[2024-05-13] MEDS: LURASIDONE HCL 40 MG TABLET 80 MG PO (20:53)
[2024-05-13] MEDS: traZODone 100 MG Tablet 200 MG PO (20:54)
[2024-05-13] MEDS: Insulin Glargine-YFGN 100 UNIT/ML Pen 28 UNIT SC (20:58)
[2024-05-13 21:31] LABS: Bedside Glucose 406 mg/dL (74-106)
--- NOTE | 2024-05-13 21:52 | NURSING ---
Patients BG was 408. Patient did recently eat a delayed dinner of potatoes. Patient was educated about his diet, but adamantly continues to have a non-compliant attitude. Will re-check Sugar at mid-night to ensure a downward trend. Did give long acting insulin.
[2024-05-14 07:11] LABS: Bedside Glucose 239 mg/dL (74-106)
[2024-05-14 09:15] VITALS: BP 110/84; PULSE 78; RESP 16; TEMP 36.8; O2SAT 100
--- NOTE | 2024-05-14 09:21 | NURSING ---
Pt's friend Liberty called wanting her cell phone back. Stating to charge nurse that it was stollen. This nurse spoke to Nikita in security. He was here Monday and dealt with this situation. He said on Monday Kel told the patient he could have the phone until he was discharged. While talking with Nikita, police department called him (Liberty called them after calling our unit, case management and security). Nikita spoke to police department and had patient speak with them also. Pt telling them that the friend said he could use the phone until he is discharged, he changed the phone over to his information and refused to give it back to her at this time. Phone is not being taken away by police at this time. Nursing will defer to police and security to deal with the phone issue.
[2024-05-14 09:22] LABS: Bedside Glucose 98 mg/dL (74-106)
--- NOTE | 2024-05-14 09:59 | NURSING ---
Phone call from patients friend (unsure if she is saying Liberty or Renetta Hou). She was telling me again how he has her phone and it needs to be taken out of his hands. I informed her that the police are involved and that is between her, the police and the patient. There is nothing i can do. She hung up on me. I called to the mult au matic operator to ask to speak to security again. Tire Cord Weaver said that Renetta has called and asked for transportation too. I talked to Nikita and informed him of her continuing to call. Nikita will ask Officer Chidi to call her to tell her to stop calling. I called to transportation and spoke to Zee. Zee said she did call her and ask for a ride to an appointment on . Zee is going to verify that she has an appointment. Renetta called back again and asked for me to tell Stanley to call her about his discharge. I told the patient and he said i am not calling her. She shouldn't even be calling here. No final discharge plans at this time to even discuss. I informed the patient that Officer chidi was going to call and tell her to stop calling. He did apologize for her continuing to call.
[2024-05-14] MEDS: Insulin Glargine-YFGN 100 UNIT/ML Pen 28 UNIT SC (10:20)
[2024-05-14] MEDS: Tacrolimus Anhydrous 1 MG Capsule 2 MG PO (10:20)
[2024-05-14] MEDS: Mycophenolate Mofetil 250 MG Capsule 500 MG PO (10:20)
[2024-05-14 10:41] LABS: Bedside Glucose 167 mg/dL (74-106)
--- NOTE | 2024-05-14 11:24 | CASEMGMT ---
Addendum entered by Leesa Cuba 05/14/24 12:04: Social Work Medical update faxed to [facility]. SW called Anish at [facility], as another possible option for pt, message left. MANUELA Pierce Original Note: Social Work SW attempted to call [facility] several times, nobody picked up the phone. SW spoke w/pt in room. He had an alternate number for [facility], pt called, SW spoke w/Gricelda([phone]). She states pt was denied due to the uncontrolled diabetes, if physician can document that pt's blood sugars are managed, they will reconsider. SW texted physician to let her know. SW spoke w/pt about other options if [facility] does not work out. Pt would consider [facility] [employer] [facility] [employer] SW called [facility], they have beds and would take pt. Pt also stating he and his sister are talking again and this may be a possibility, for her to return to her home. SW also spoke w/pt about [facility]. Pt would consider this, as per Prasanna w/[facility] this is the only place in the area that would consider presumptive Medicaid. SW explained this also to pt. Pt is to let SW know if he plans to return to his sister's, rather than any of these other options. SW asked pt for clarification on his mental health diagnoses. Pt confirms has ADHD, autism, and PTSD. In regard to substance abuse, pt has used meth and alcohol. He states he used 5 days ago, prior to that he was clean for two months. SW will continue to follow. MANUELA Pierce
--- NOTE | 2024-05-14 11:55 | PN.HOSP_ITS ---
Reason for Visit Reason for Visit: Diagnoses Iron deficiency anemia, unspecified (05/12/24) Type 1 diabetes mellitus without complications (05/12/24) Post-traumatic stress disorder, unspecified (05/12/24) Autistic disorder (05/12/24) Hyperglycemia, unspecified (05/12/24) Tobacco use (05/12/24) Patient's other noncompliance with medication regimen for other reason (05/12/24) Kidney transplant status (05/12/24) Subjective Subjective Patient with no physical complaints other than feeling a little bit tired with how he is taking his medicine as, somewhat stressed over his living situation otherwise feeling well Objective Data Objective Data Vital Signs: Vital Signs Temp Pulse Resp BP Pulse Ox O2 Del Method 98.2 F 78 16 110/84 H 100 Room Air 05/14/24 09:15 05/14/24 09:15 05/14/24 09:15 05/14/24 09:15 05/14/24 09:15 05/14/24 09:26 Oxygen Delivery Method Room Air Weight: 64.4 kg Body Mass Index (BMI) 20.3 Intake & Output: Intake and Output for Last 24 Hours 05/12/24 05/13/24 05/14/24 23:59 23:59 23:59 Intake Total 616.05 / 616.05 Balance 616.05 / 616.05 Lab / Micro Data 05/12/24 05:20 05/12/24 05:20 Labs: Laboratory Results - last 24 hr 05/13/24 11:56: POC Glucose 262 H 05/13/24 13:54: POC Glucose 279 H 05/13/24 16:47: POC Glucose 276 H 05/13/24 20:57: POC Glucose 406 H 05/14/24 01:01: POC Glucose 239 H 05/14/24 09:03: POC Glucose 98 05/14/24 10:19: POC Glucose 167 H Physical Exam Narrative General: Alert, oriented, no apparent distress HEENT: Atraumatic, normocephalic Eyes: extraocular movements grossly intact Neck: Supple Respiratory: normal respiratory effort Cardiovascular: no edema appreciated GI: nondistended Extremities: Moving all extremities Neuro: No overt focal neurological deficits Psych: Cooperative Assessment & Plan Assessment/Plan (1) Hyperglycemia: (2) Type 1 diabetes mellitus: QUALIFIERS: Diabetes mellitus complication status: without complication Qualified Code(s): E10.9 - Type 1 diabetes mellitus without complications (3) PTSD (post-traumatic stress disorder): (4) Tobacco abuse: (5) History of renal transplant: PLAN: Plan #Hyperglycemia/DMI/subsequent hypoglycemia -Not in DKA -Medication compliance difficulty -Pt reports eating whatever he wants and that glucose drops when he is restricted, pt adamant about regular diet -Orders adjusted -Also adjusted insulin as pt not only dropping here but at home as well -Glucose checks/close monitoring -05/13: Still quite variable but patient eating more consistently now, we will continue to adjust insulin -05/14: No hypoglycemia or significant hyperglycemia that would necessitate continued inpatient admission, patient stable for placement or discharge #Hx renal transplant/elevated creatinine -Continue home medications -Monitor kidney fxn -Tacrolimus lvl -Creatinine improving, patient did request IV taken out so not receiving IV fluids anymore but maintaining p.o. at this time -05/13: Patient refused a.m. lab draws but he is eating and drinking well now and glucose is improved -05/14: Eating and drinking well #Tobacco use -Advise cessation -Nicotine replacement available if desired -05/13: Given nicotine gum # Autism/PTSD -Continue home meds -Patient intermittently not cooperative but discussed at length and patient presently being compliant -05/13: Patient continued on his home medications, reports he slept a lot last night, wants to see a psychiatrist, discussed lack of inpatient psychiatric consultation here and advised outpatient follow-up. At this time patient cooperative, no flight of ideas, not distractible, patient acting appropriate. Suspect his excitability and distractibility are more based in personality than they are in active mood disorder and do not feel he needs inpatient psychiatric treatment at this time -05/14: Supportive care # Recovering substance and alcohol addiction -Denies any recent substance use for over 2 months, supportive care -05/13: Patient presently homeless, used multiple substances previously and reports if he is discharged to the street he will begin using again. Social work and case management presently working with patient, patient hopes to get into a rehab in [place], this is being explored -05/14: Presently trying to find placement for patient # Difficult social situation -Case management and social work tomorrow -Discussed that there are limitations of what can be offered and patient verbalized understanding -05/13: Patient to get assistance with signing up for [place] insurance, presently homeless and given his multiple medical comorbidities and variable glucose feel it is reasonable to keep him tonight while trying to get him into the rehab in [place] -05/14: Continues to work with social work, supportive care provided #DVT ppx: Lovenox subcu Bren Parsons MD Time spent in the patient's overall evaluation,decision-making process, review of diagnostic data, adjustment of management, discussion with other providers, nursing nursing and ancillary staff involved in patient's care documentation, 35 minutes Charges/Coding Visit Charges Inpatient E&M: 43028 Subs Hosp L2
[2024-05-14] MEDS: Glucerna Shake 120 ML LIQUID PO (12:33)
[2024-05-14] MEDS: Insulin Lispro 100 UNIT/ML INSULN.PEN 7 UNIT SC (12:33)
--- NOTE | 2024-05-14 13:57 | CASEMGMT ---
Addendum entered by Leesa Cuba 05/14/24 14:11: Social [facility], they cannot transport pt as there is no medical necessity to take a wheelchair van. SW will speak w/other hospital staff to see if there are any other transportation options. MANUELA Pierce Original Note: Social Work Pt and SW both called, pt is denied to go to [facility]. SW called [facility], pt cannot go there as pt does not have an IV. SW spoke w/Mary at [facility], she states that she cannot take pt, even if SW were to provide a letter stating who pt is. She suggested pt go to [facility]. SW called [facility], they can take pt, he needs to be there by 6:30pm. SW spoke w/Zonia, plant floor automation manager. She is okay w/pt going by taxi voucher. SW caller [facility], they have no availability to take pt to [facility] today. SW called [facility], they appear to be out of business. SW called [facility], they do not work w/the hospital. SW called the hospital van, they have no availability to take pt today or tomorrow. SW will speak w/hospital staff to see if there are any other options. MANUELA Pierce
--- NOTE | 2024-05-14 14:08 | CASEMGMT ---
Pt is in need of transportation to get to [facility] upon dc. TC to pt healthcare insurance phone number listed on face sheet, , spoke with Lisa, she states that if there is not a policy number or case number, she cannot identify any benefits. Pt does not have his insurance card present to obtain this information.
--- NOTE | 2024-05-14 14:33 | DCINST_ITS ---
Discharge Instructions Diet Discharge Diet: 1999 Calorie Control Diet and Carb Control Diet Activity Discharge Activity: Return to Normal Activity Follow Up Care Test Results: Test results from this visit will be discussed in further detail at your follow- up appointment, if applicable. Discharge Plan Admission Admit Date/Time: 05/12/24 01:06 Primary Reason for Your Visit: Elevated blood glucose due to medication non compliance Attending Provider: Bren Parsons Primary Care Provider: Care Physician,No Primary Consulting Providers: Darell Thorpe Instructions Patient Instructions: Depression Chem Balance, Depression: Tips to Help Yourself, Diabetes Support Additional Instructions / Restrictions: DISCHARGE INSTRUCTIONS PLEASE READ *Please take this with you to your next doctors appointment* -It is recommended you consider establishing with a psychiatrist upon discharge as you indicated you would like to see one, information for Dr. Alba provided. -On discharge it is recommended that you take 28 units of glargine twice daily and 7 units of insulin lispro 7 units with meals. It Will be important to take your insulin as prescribed and follow your blood sugars closely, information for local drywall finishing foreman Dr. Vicente will be added to your discharge instructions -Please continue your other home medications -Please call your primary care provider's office upon discharge to schedule a hospital follow up within 1 week. -If you do not have a primary care physician of list of local primary care physicians can be provided for you upon discharge. Please ask for this list prior to discharge -For any concerning signs or symptoms please call 911 or proceed to the nearest emergency department Discharge Orders/Prescriptions Prescriptions: Continued tacrolimus 1 mg Capsule 2 mg PO BID Qty: 120 0RF trazodone 100 mg Tablet 200 mg PO QHS Qty: 60 0RF (DME) pen needle, diabetic [Pen Needle] 31 gauge x 1/4 needle See Rx Instructions .Route Qty: 100 0RF Rx Instructions: As directed Changed mycophenolate mofetil 250 mg Capsule 500 mg PO BID Qty: 240 0RF insulin lispro [Humalog KwikPen Insulin] 100 unit/mL Insulin Pen 7 unit subcut TIDAC Qty: 0 0RF lurasidone [Latuda] 40 mg Tablet 80 mg PO QHS 30 Days Qty: 60 0RF insulin glargine-yfgn 100 unit/mL (3 mL) Insulin Pen 28 unit subcut BID@0800,1999 Qty: 0 0RF Referrals / Follow Up: See,Billy L, DO [Med Staff - Senior Research Executive] - Remigio Vicente MD [Med Staff - Courtesy Staff] - Care Physician,No Primary [Primary Care Provider] - (-If you do not have a primary care physician of list of local primary care physicians can be provided for you upon discharge. Please ask for this list prior to discharge) Disposition Disposition (needs filled in before D/C Order can be placed): Home, Self Care
--- NOTE | 2024-05-14 14:37 | DS.PCM_ITS ---
Providers Date of Admission: 05/12/24 Date of Discharge: 05/14/24 Primary Care Physician: No Primary Care Phys Reason For Visit: SEVERE HYPERGLYCEMIA DUE TO MEDICAL NONCOMPLIANCE Diagnosis Discharge Diagnosis (1) Hyperglycemia: Status: Acute Code(s): R73.9 - Hyperglycemia, unspecified (2) Type 1 diabetes mellitus: Status: Acute Code(s): E10.9 - Type 1 diabetes mellitus without complications Qualifiers: Diabetes mellitus complication status: without complication Qualified Code(s): E10.9 - Type 1 diabetes mellitus without complications (3) PTSD (post-traumatic stress disorder): Status: Acute Code(s): F43.10 - Post-traumatic stress disorder, unspecified (4) Tobacco abuse: Status: Acute Code(s): Z72.0 - Tobacco use (5) History of renal transplant: Status: Acute Code(s): Z94.0 - Kidney transplant status Plan #Hyperglycemia/DMI/subsequent hypoglycemia #Hx renal transplant/elevated creatinine #Tobacco use # Autism/PTSD # Recovering substance and alcohol addiction # Difficult social situation Medications at Discharge Home Medications pen needle, diabetic 31 gauge x 1/4 (Pen Needle) #100 ea 04/30/24 tacrolimus 1 mg capsule, immediate-release 2 mg (2 x 1 mg) PO BID #120 caps 04/30/24 trazodone 100 mg tablet 200 mg (2 x 100 mg) PO QHS #60 tabs 04/30/24 insulin glargine-yfgn 100 unit/mL (3 mL) subcutaneous pen 28 unit (0.28 mL) subcut BID@0800,2000 #0 mL 05/14/24 insulin lispro 100 unit/mL subcutaneous pen (Humalog KwikPen (U-100) Insulin) 7 unit (0.07 mL) subcut TIDAC #0 mL 05/14/24 lurasidone 40 mg tablet (Latuda) 80 mg (2 x 40 mg) PO QHS 30 days #60 tabs 05/14/24 mycophenolate mofetil 250 mg capsule 500 mg (2 x 250 mg) PO BID #240 caps 05/14/24 Hospital Course Summary of Care Provided Minutes Spent on Discharge: 40 Hospital Course: 24-year-old male with history of tobacco abuse, polysubstance use, type 1 diabetes, autism and depression, renal transplant on mycophenolate and tacrolimus with recent admission at [facility] May 04 through the for DKA who presented to [facility] ED 05/11 due to hyperglycemia and medication noncompliance. Glucose was 777 however patient was not in DKA, restarted on his home insulin but did have labile sugars and this required multiple adjustments. Patient also adamant that he eats what ever he wants when he is discharged and very adamant about liberalize diet while inpatient, given how sensitive his glucose is it seems reasonable to mimic his eating habits outside of the hospital to try to establish better control, this was discussed at length with the patient. Hospital stay was complicated by complex social situation, ultimately social work was able to coordinate safe discharge plan and patient was discharged in stable condition with the following discharge instructions: -It is recommended you consider establishing with a psychiatrist upon discharge as you indicated you would like to see one, information for Dr. Alba provided. -On discharge it is recommended that you take 28 units of glargine twice daily and 7 units of insulin lispro 7 units with meals. It Will be important to take your insulin as prescribed and follow your blood sugars closely, information for local family resource management specialist Dr. Vicente will be added to your discharge instructions -Please continue your other home medications -Please call your primary care provider's office upon discharge to schedule a hospital follow up within 1 week. -If you do not have a primary care physician of list of local primary care physicians can be provided for you upon discharge. Please ask for this list prior to discharge -For any concerning signs or symptoms please call 911 or proceed to the nearest emergency department Physical Exam Narrative General: Alert, oriented, no apparent distress HEENT: Atraumatic, normocephalic Eyes: extraocular movements grossly intact Neck: Supple Respiratory: normal respiratory effort Cardiovascular: no edema appreciated GI: nondistended Extremities: Moving all extremities Neuro: No overt focal neurological deficits Psych: Cooperative Weight / BMI Weight Weight: 64.4 kg Body Mass Index (BMI) 20.3 ABG / Lab / Microbiology Data 05/12/24 05:20 05/12/24 05:20 Laboratory: Laboratory Results - last 24 hr 05/13/24 16:47: POC Glucose 276 H 05/13/24 20:57: POC Glucose 406 H 05/14/24 01:01: POC Glucose 239 H 05/14/24 09:03: POC Glucose 98 05/14/24 10:19: POC Glucose 167 H D/C Instructions Discharge Diet: 2000 Calorie Control Diet and Carb Control Diet Meaningful Use Info Meaningful Use Meaningful Use Diagnoses (Choose all that apply): None applicable Ischemic Stroke Statin Dosing Therapy Reference: STATIN DOSE THERAPY REFERENCE: * Patients > 75 years receive moderate or high dose statin therapy. * Patients 75 years or YOUNGER should receive HIGH intensity statin dose unless contraindicated. You will be required to document reason for non-treatment if statin daily dose does not meet guidelines. HIGH DOSE STATIN THERAPY DAILY Atorvastatin > than or = to 40 mg Rosuvastatin > than or = to 20 mg Amlodipine + Atorvastatin > than or = to 2.5/40 mg Ezetimibe + Simvastatin 10/80 mg Simvastatin 80mg Discharge Plan Admission Admit Date/Time: 05/12/24 01:06 Primary Reason for Your Visit: Elevated blood glucose due to medication non compliance Attending Provider: Bren Parsons Primary Care Provider: Care Physician,No Primary Consulting Providers: Darell Thorpe Instructions Patient Instructions: Depression Chem Balance, Depression: Tips to Help Yourself, Diabetes Support Additional Instructions / Restrictions: DISCHARGE INSTRUCTIONS PLEASE READ *Please take this with you to your next doctors appointment* -It is recommended you consider establishing with a psychiatrist upon discharge as you indicated you would like to see one, information for Dr. Alba provided. -On discharge it is recommended that you take 28 units of glargine twice daily and 7 units of insulin lispro 7 units with meals. It Will be important to take your insulin as prescribed and follow your blood sugars closely, information for local family resource management specialist Dr. Vicente will be added to your discharge instructions -Please continue your other home medications -Please call your primary care provider's office upon discharge to schedule a hospital follow up within 1 week. -If you do not have a primary care physician of list of local primary care physicians can be provided for you upon discharge. Please ask for this list prior to discharge -For any concerning signs or symptoms please call 911 or proceed to the nearest emergency department Discharge Orders/Prescriptions Prescriptions: Continued tacrolimus 1 mg Capsule 2 mg PO BID Qty: 120 0RF trazodone 100 mg Tablet 200 mg PO QHS Qty: 60 0RF (DME) pen needle, diabetic [Pen Needle] 31 gauge x 1/4 needle See Rx Instructions .Route Qty: 100 0RF Rx Instructions: As directed Changed mycophenolate mofetil 250 mg Capsule 500 mg PO BID Qty: 240 0RF insulin lispro [Humalog KwikPen Insulin] 100 unit/mL Insulin Pen 7 unit subcut TIDAC Qty: 0 0RF lurasidone [Latuda] 40 mg Tablet 80 mg PO QHS 30 Days Qty: 60 0RF insulin glargine-yfgn 100 unit/mL (3 mL) Insulin Pen 28 unit subcut BID@0800,2000 Qty: 0 0RF Referrals / Follow Up: Billy Alba DO [Med Staff - Movie Theater Usher] - Remigio Vicente MD [Med Staff - Courtesy Staff] - Care Physician,No Primary [Primary Care Provider] - (-If you do not have a primary care physician of list of local primary care physicians can be provided for you upon discharge. Please ask for this list prior to discharge) Disposition Disposition (needs filled in before D/C Order can be placed): Home, Self Care Charges/Coding Visit Charges Inpatient E&M: 14015 Disch Hosp >30min
--- NOTE | 2024-05-14 14:48 | CASEMGMT ---
Social Work SW called [facility], they are not able to transport pt. SW called [facility], spoke w/Niyah. She states they can take pt to [facility] then to [facility], as long as the hospital will cover the cost. LOUISE spoke w/Bhakti Stuart, she states that [facility] can complete a W9 or send an invoice to the hospital to Bhakti's attention. LOUISE called Niyah back from [facility]. She is going to send an invoice, and can be here about 3:15. She is aware of the two stops. Also, pt had asked for the police to be present when he gets his medication from his sister's [address] at [address] [facility]. Niyah will take pt to [facility] and then [facility]. She will be here about 3:15. SW notified physician, she discharged pt. RN will get pt to the door for pickup by 315pm. MANUELA Pierce
== END 2024-05-14 15:12 | disposition home or self-care (01) ==
LOC: ED 22:01 → MS3 05-12 00:39
PROVIDERS: Admitting Provider Internal Medicine; Emergency Provider Emergency Medicine; Visit Provider Internal Medicine
DX: E10.65 Type 1 diabetes mellitus with hyperglycemia (principal); Z79.4 Long term (current) use of insulin; F17.210 Nicotine dependence, cigarettes, uncomplicated; Z94.0 Kidney transplant status; Z91.148 Patient's other noncompliance with medication regimen for other reason; M79.10 Myalgia, unspecified site; D50.9 Iron deficiency anemia, unspecified; F84.0 Autistic disorder; F43.10 Post-traumatic stress disorder, unspecified; Z79.899 Other long term (current) drug therapy; F17.290 Nicotine dependence, other tobacco product, uncomplicated; F17.220 Nicotine dependence, chewing tobacco, uncomplicated; Z59.00 Homelessness unspecified
CPT/HCPCS: 36415; 80053; 81001; 82009; 82550; 82962; 83735; 84100; 85025; 96360; 96361; 99221; 99285; J7030; A4216; G0378